=== PATIENT | female | born 1970 | race Caucasian/White ===

== ENCOUNTER → 2017-05-10 | Outpatient (CLI) | payer BC ==
[~2017-05-10] MED LIST: AMOXICILLIN 8751 TAB PO; CIPRO; EFFEXOR 75M75 MG/TAB PO; NORCO 325 MG-51 TAB PO; PERCOCET 325 MG1 TA2 PO; TRI-SPRINTEC 281 TAB PO; ZITHROMAX 250M250 MG PO
== END ==
LOC: COL.RAD 07:10
DX: R42 Dizziness and giddiness (principal)
CPT/HCPCS: A9585

== ENCOUNTER 2020-06-03 17:30 | Emergency (ER) | payer BC ==
[~2020-06-03] VITALS: Ht 172.7 cm; Wt 136.4 kg
[2020-06-03 17:38] VITALS: TEMP 98.1
[2020-06-03 17:45] LABS: HEMATOCRIT 39.1 % (37.0-47.0); HEMOGLOBIN 12.7 g/dl (12.5-16.0); MEAN CELL VOLUME 84 fl (80.0-100.0); MEAN CORPUSCULAR HEMOGLOBIN 27 pg (27.0-31.0); MEAN CORPUSCULAR HGB CONC 33 g/dl (33.0-37.0); PLATELET COUNT 136 K/mm3 (130-400); RED BLOOD COUNT 4.66 M/mm3 (4.10-5.30); REDCELL DISTRIBUTION WIDTH-CV 13.9 % (11.5-14.5)
[2020-06-03 17:47] LABS: PROTHROMBIN TIME 11.2 SECONDS (9.7-12.8)
[2020-06-03 17:50] LABS: PARTIAL THROMBOPLASTIN TIME 31.5 SECONDS (26.0-37.0)
[2020-06-03 17:54] LABS: ALANINE AMINOTRANSFERASE 20 U/L (4-34); ALBUMIN 4.2 gm/dL (3.5-5.0); ALKALINE PHOSPHATASE 100 U/L (50-136); ANION GAP 10 mmol/L (7-16); AST,SGOT 28 U/L (15-37); BILIRUBIN,TOTAL 0.4 mg/dL (0.0-1.0); BLOOD UREA NITROGEN 14 mg/dL (7-17); CALCIUM 8.9 mg/dL (8.4-10.2); CARBON DIOXIDE 25 mmol/L (22-30); CHLORIDE 100 mmol/L (98-107); CREATININE, serum 0.85 (0.52-1.25); GLUCOSE 166 mg/dL (74-106); POTASSIUM 3.3 mmol/L (3.4-5.0); SODIUM 135 mmol/L (137-145); TOTAL PROTEIN 7.9 gm/dL (6.4-8.2)
[2020-06-03 17:55] LABS: ALCOHOL(ethanol),MEDICAL < 10 mg/dL
[2020-06-03 17:59] LABS: BAND 1 % (0-10); EOSINOPHIL 5 % (0-4); LYMPHOCYTE 33 % (20.0-51.0); NEUTROPHILS 53 % (42.0-75.2); PLATELET ESTIMATE DECREASED (NORMAL)
[2020-06-03 18:14] LABS: TROPONIN-I < 0.012 ng/mL (0.000-0.035)
[2020-06-03 18:33] VITALS: BP 163/139; PULSE 95
[2020-06-03] MEDS ORDERED: REQUIP 1MG T1 MG/TAB PO (19:14)
[2020-06-03] MEDS ORDERED: MOBIC 7.5MG7.5 MG PO (19:14)
[2020-06-03] MEDS ORDERED: D3-5050000 IU PO (19:15)
== END 2020-06-03 18:50 | disposition short-term general hospital (02) ==
LOC: COL.ER 17:30
PROVIDERS: Emergency Medicine
DX: I61.9 Nontraumatic intracerebral hemorrhage, unspecified (principal); I61.6 Nontraumatic intracerebral hemorrhage, multiple localized; F32.9 Major depressive disorder, single episode, unspecified
CPT/HCPCS: J0330; J2704; J3010; J7030

== ENCOUNTER 2020-06-12 11:25 | Inpatient (IN) | payer BC ==
[~2020-06-12] VITALS: Ht 175.3 cm; Wt 134.5 kg
[~2020-06-12 11:25] MED LIST changes: +D3-5050000 IU PO; +MOBIC 7.5MG7.5 MG PO; +REQUIP 1MG T1 MG/TAB PO
--- NOTE | 2020-06-12 12:35 | NUR ---
PATIENT ARRIVED VIA AMBULANCE FROM [facility] AND WAS TRANSPORTED TO ROOM 337, ARRIVED AT 1235. PATIENT C/O HEADACHE/EYE PAIN TODAY, AND WAS GIVEN TYLENOL AND PRN PERCOCET. [id number] LIFT WITH 3X ASSIST WAS UTILIZED FOR TOILET TRANSFERS.
[2020-06-12] MEDS ORDERED: FERROUS GL325 MG/TAB PO (13:35)
[2020-06-12] MEDS ORDERED: LIPITOR 40MG TA40 MG PO (13:36)
[2020-06-12] MEDS ORDERED: NEURONTIN300 MG/CAP PO (13:37)
[2020-06-12] MEDS ORDERED: COZAAR 25MG25 MG/TAB PO (13:38)
[2020-06-12] MEDS ORDERED: HCTZ12.5TAB PO (13:38)
[2020-06-12] MEDS ORDERED: FLOMAX 0.40.4 MG/CAP PO (13:41)
[2020-06-12] MEDS ORDERED: PROAIR HFA0.09 MG/AC IH (13:42)
[2020-06-12] MEDS ORDERED: VITAMIN D 50,1.25 MG PO (13:55)
[2020-06-12 17:35] VITALS: BP 121/53; PULSE 79; TEMP 98.9
[2020-06-13 05:44] VITALS: BP 117/52; PULSE 84; TEMP 99.2
--- NOTE | 2020-06-13 05:53 | NUR ---
PT ADMIN. PERCOCET FOR LEG PAIN AND HEADACHE. PT FORGETFUL. SOMETIMES DIFFICULT TO UNDERSTAND WHAT SHE IS TALKING ABOUT. SIT TO STAND SOMEWHAT DIFFICULT TO USE WITH PT'S LEFT SIDE WEAKNESS.
[2020-06-13 13:04] LABS: COLLECTION METHOD CATHETER
--- NOTE | 2020-06-13 13:35 | NUR ---
Plan: To return home locally with Spouse Haile . Assessment: Patient reports that she resides locally. Patient reports that she is having a hard time finding his phone number. Patient reports that her PCP is Dr. Goode. and obtains medications from [facility], Patient reports havinga dpoa but does not remember where the ppw is located. Action: Educated patient on services, nothing follows.
[2020-06-13 13:59] LABS: MUCOUS Present /lpf; PH 7 (5-8); SQUAMOUS EPITHELIAL 0-2 /hpf; URINE APPEARANCE Hazy; URINE BACTERIA Moderate /hpf; URINE BILIRUBIN Negative (NEGATIVE); URINE BLOOD 1+ (NEGATIVE); URINE COLOR Yellow; URINE GLUCOSE Negative (NEGATIVE); URINE KETONE Negative (NEGATIVE); URINE LEUKOCYTE ESTERASE Trace (NEGATIVE); URINE NITRATE Positive (NEGATIVE); URINE PROTEIN(semi-quant) Negative (NEGATIVE); URINE UROBILINOGEN Negative (NEGATIVE)
--- NOTE | 2020-06-13 15:19 | NUR ---
Patient resting in bed with by her side. Call light in reach with bed alarm set. Patient was a max sit to stand lift with transfers this morning. Patient was continent of bowel this morning had a large soft BM light brown in color. Patient currently using a periwick for urinary incontince issues.
--- NOTE | 2020-06-13 15:21 | NUR ---
Straight cath was performed so that a sterile urine sample could be collected. Patient has been having urinary frequency and urine was hazy. Bladder scan was completed this morning with no risudal urine found. 16 setswana catheter was used for collection. Will continue to monitor.
[2020-06-13 16:51] VITALS: BP 115/59; PULSE 79; TEMP 98.4
--- NOTE | 2020-06-13 17:40 | NUR ---
Call placed to Dr. Jeffrey regarding urinalysis results. No new orders per Dr. Jeffrey.
--- NOTE | 2020-06-13 19:35 | NUR ---
PATIENT SLEEPING IN BED DURING CHANGE OF SHIFT REPORT FROM DAY SHIFT NURSE. BED ALARM ON.
--- NOTE | 2020-06-13 20:00 | NUR ---
FLACCID TO L SIDE OF BODY WITH REPORT L VISUAL FIELD DEFICIT, OBSERVED LEFT FACIAL DROOP. BED ALARM ON. BEDREST DURING NIGHT FOR SAFETY PRECAUTIONS, PATIENT REQUIRES X2-3 MAX ASSIST WITH TURNS.
--- NOTE | 2020-06-13 23:07 | NUR ---
PATIENT RESTING QUIETLY, WATCHING TV WITH NO REPORTED C/O AT THIS TIME. PERIWICK IN PLACE, NO URINE OUTPUT CURRENTLY. BED ALARM ON.
[2020-06-14 05:59] VITALS: BP 86/40; PULSE 73; TEMP 98.2
--- NOTE | 2020-06-14 06:50 | NUR ---
CHANGE OF SHIFT REPORT GIVEN TO DAY SHIFT NURSEJADEN. BED ALARM ON.
--- NOTE | 2020-06-14 07:08 | NUR ---
PATIENT SLEEPING IN BED AT BEDSIDE SHIFT REPORT. BED IN LOW, BED ALARM ON, AND SOFT TOUCH CALL LIGHT IN REACH. PERIWICK IN PLACE.
[2020-06-14 07:26] VITALS: BP 126/56; PULSE 76
--- NOTE | 2020-06-14 14:02 | NUR ---
PATIENT GIVEN PRN PERCOCET AT 1207 AND REASSESSED 45 MINUTES LATER, GIVEN A 2ND, AGAIN 45 MINUTES LATER REASSESSED AND GIVEN A 3RD FOR A CONTINUED PAIN LEVEL OF 10/10. ICE GIVEN TO PATIEN'TS LEFT HIP AND LIGHTS ARE DIMMED.
--- NOTE | 2020-06-14 17:46 | NUR ---
PATIENT C/O CONSTANT PAIN TODAY. PERCOCET X3 WEREN'T BENEFICIAL UNTIL COUPLED WITH ICE THERAPY AND MASSAGE/ POSITIVE REINFORCEMENT. PATIENT WAS CLEANSED WITH SOAP AND WATER IN VAGINAL AREA AND ZINC CREAM APPLIED. NEW PERIWICK WAS PLACED AND LINENS WERE CHANGED. CONTINUING TO ENCOURAGE PATIENT TO SCAN GAZE TO THE LEFT TO SEE ITEMS; PATIENT STATES "I DON'T LIKE THAT." PATIENT RESTING IN BED AND EATING DINNER UPRIGHT. BED IN LOW, BED ALARM ON, SOFT TOUCH CALL LIGHT WITHIN REACH.
[2020-06-14 18:22] VITALS: BP 103/50; BP 127/64; PULSE 78; TEMP 97.3
--- NOTE | 2020-06-14 19:05 | NUR ---
RECEIVED CHANGE OF SHIFT REPORT FROM DAY SHIFT NURSE. BED ALARM ON. PATIENT REQUEST PAIN MED WHEN NEXT AVAILABLE. AGREED TO ICE PACK FOR AREAS OF C/O TO BACK TO HEAD AND LEFT HIP. PATIENT ALSO MENTIONED SHE HAS MORE PAIN WHEN SHE IS STRESSED, REPORTING SHE WAS HAVING PROBLEMS LOCATING PROGRAM TO WATCH ON HER SMART PHONE. STAFF NURSE ASSISTED PATIENT IN FINDING PROGRAM.
--- NOTE | 2020-06-14 20:00 | NUR ---
CONTINUES WITH LEFT SIDED FLACCIDNESS TO LUE & LLE WITH SPASMS WITH MOVEMENT OF LLE. PATIENT REPORTS SOME PRE-EXISTING NUMB SENSATION TO LATERAL R THIGH THAT PATIENT WAS TO SEE NEUROLOGY FOR FURTHER WORKUP, REPORT HAS HAD WORKUP FOR LUPUS AND RHEUMATOID ARTHRITIS FOR C/O LEFT HIP/SHOULDER PAIN AND RIGHT LATERAL THIGH NUMBNESS. REPORTS ICE PACK TO BACK TO HEAD WAS HELPFUL WITH HEADACHE C/O, OBSERVED PATIENT RESTING WITH EYES CLOSED AFTER PLACEMENT OF ICE PACK. OBSERVED PATIENT WITH LEFT VISUAL FIELD DEFICIT, REPORTS NOT ABLE TO SEE WITH LEFT EYE UNTIL SWEEPS VISUAL FIELD FROM SIDE TO SIDE. OBSERVED LEFT SIDED FACIAL DROOPING, NO DROOLING OBSERVED TO CORNER OF LEFT SIDE OF MOUTH. SWALLOWS PILLS WHOLE, WHEN TAKEN ONE AT A TIME AND SITTING UP AT 90 DEGREES PER SWALLOWING PRECAUTIONS WITH PATIENT DRINKING WITH NO USE OF STRAWS. PATIENT REQUIRING MAX ASSIST X2 WITH REPOSITIONING FROM SIDE TO SIDE DUE TO LEFT SIDED DEFICIT TO LUE/LLE.
--- NOTE | 2020-06-14 22:42 | NUR ---
PATIENT C/O SOME SHORTNESS OF BREATH FROM FREQUENT COUGHING, THAT IS NONPRODUCTIVE. OXYGEN SAT CHECKED AT 87-88 INITIALLY THAT IMPROVES TO 91-93 WITH DEEP BREATHING. PATIENT AGREEABLE TO HAVE OXYGEN PER NASAL CANNULA PLACES TO NARES, RT INFORMED. WHEN ASKED PATIENT AGREED TO PRN RT TREATMENT AT THIS TIME. RT INFORMED OF PATIENT WANTING PRN TX. OXYGEN NOW IN PLACE PER NC AT 1LPM. BED ALARM ON.
[2020-06-15 04:31] VITALS: BP 113/60; PULSE 66; TEMP 97.6
--- NOTE | 2020-06-15 07:26 | NUR ---
CHANGE OF SHIFT REPORT GIVEN TO DAY SHIFT NURSEJADEN. BED ALARM ON.
--- NOTE | 2020-06-15 08:37 | NUR ---
PATIENT SLEEPING IN BED AT BEDSIDE SHIFT REPORT. BED IN LOW, CALL LIGHT WITHIN REACH, BED ALARM ON.
--- NOTE | 2020-06-15 09:27 | NUR ---
PATIENT C/O INTENSE PAIN IN LEFT HIP WITH A CONSISTENT 10/10 PAIN LEVEL. SINGLE PERCOCET WAS INEFFECTIVE. ON SECOND DOSE 45 MINUTES AFTER INITIAL ADMINISTRATION. WILL CONTINUE TO MONIOTR. ICE THERAPY, REPOSITIONING AND POSITIVE FEEDBACK HAVE BEEN INEFFECTIVE.
--- NOTE | 2020-06-15 15:19 | NUR ---
DR. WEBBER CALLED REGARDING UTI, OMNICEF PO STARTED 06/15. PAIN MANAGEMENT ALSO DISCUSSED. DR. WEBBER ORDERED THE PERCOCET TO BE CHANGED FROM Q6 TO Q4 HOURS.
[2020-06-15 15:45] VITALS: BP 101/45; PULSE 78; TEMP 99.1
--- NOTE | 2020-06-15 17:41 | NUR ---
PATIENT RESTING IN BED WITH ICE THERAPY ON LEFT HIP AND POSTERIOR NECK AND FOREHEAD. BED IN LOW, CALL LIGHT WITHIN REACH, ALARM ON, PUREWICK IN PLACE. PATIENT VAGINAL AND GROIN AREA CLEANSED WTIH SOAP AND WATER, PAT DRIED AND ZINC CREAM APPLIED BID TODAY. PATIENT CONTINUES TO C/O OF HEADACHES, LEFT HIP AND SHOULDER PAIN, PRN PERCOCET CHANGED TO Q4 HOURS FROM Q6 HOURS. PATIENT STARTED ON PO OMNICEF FOR UTI.
--- NOTE | 2020-06-15 19:00 | NUR ---
CHANGE OF SHIFT REPORT RECEIVED FROM DAY SHIFT NURSE.
--- NOTE | 2020-06-15 20:00 | NUR ---
LEFT SIDE OF BODY FLACCID TO LUE AND LLE D/T BRAIN BLEED ACUTE HX. OBSERVED MOVEMENT TO RUE/RLE. OBSERVED PATIENT REPORTING LEFT VISUAL FIELD DEFICIT, ENCOURAGING PATIENT TO SWEEP FOR VISUAL WHEN EATING/DRINKING/WATCHING TV, OBSERVED PATIENT NEEDING FREQUENT REMINDERS TO SWEEP FOR VISUAL FIELD. BED ALARM ON. CONTINUES TO SWALLOW PILLS WHOLE ONE AT A TIME WITH STAFF ASSISTING PATIENT. ABLE TO DRINK THIN LIQUIDS WITH NO COUGHING LONG PATIENT DOES NOT DRINK WITH STRAW.
[2020-06-16 06:11] VITALS: BP 114/47; PULSE 78; TEMP 97.8
[2020-06-16 07:24] LABS: BASO % 0.3 % (0.0-2.0); EOS # 0.5 (0.0-0.7); EOS % 3.9 % (0-4.0); GRAN % 69.5 % (42.2-75.2); HEMOGLOBIN 11.5 g/dl (12.5-16.0); LYMPH # 2.6 (1.2-3.4); LYMPH % 20.1 % (20.0-51.0); MEAN CELL VOLUME 86 fl (80.0-100.0); MEAN CORPUSCULAR HEMOGLOBIN 27 pg (27.0-31.0); MEAN CORPUSCULAR HGB CONC 31 g/dl (33.0-37.0); MEAN PLATELET VOLUME 12.6 fl (7.4-10.4); MONO # 0.7 (0.1-0.6); MONO % 5.1 % (1.7-9.3); PLATELET COUNT 105 K/mm3 (130-400); RED BLOOD COUNT 4.29 M/mm3 (4.10-5.30); REDCELL DISTRIBUTION WIDTH-CV 14.2 % (11.5-14.5)
[2020-06-16 07:25] LABS: HEMATOCRIT 36.7 % (37.0-47.0)
--- NOTE | 2020-06-16 07:27 | NUR ---
CHANGE OF SHIFT REPORT GIVEN TO DAY SHIFT NURSEERA. BED ALARM ON.
[2020-06-16 07:35] LABS: CALCIUM 8.8 mg/dL (8.4-10.2); CREATININE, serum 0.68 (0.52-1.25); MAGNESIUM 2.1 mg/dL (1.6-2.3); POTASSIUM 3.4 mmol/L (3.4-5.0)
--- NOTE | 2020-06-16 13:03 | NUR ---
Patient had a lot of pain this morning to her left hip and left shoulder rating it at 10/10. She was given prn Oxycodone, which was not effective so was given an additional one with more effect then rating it at 6/10. Patient is having burning with urination today and is currently on an antibiotic that was started on 06/15. Patient reports having some itching to her back and this nurse observed some red spots on her back. This will be reported to Dr. Nowak. Patient has been asking for some Diflucan reporting that it is more effective when she has been on an antibiotic. This will be communicated to Dr. Nowak.
--- NOTE | 2020-06-16 13:09 | NUR ---
Admission QIM scores were reviewed by the team. Code of 1 chosen for putting on/taking off footwear was determined by team discussion to be the most usual performance for this patient during the assessment period. Code of 1 chosen for rolling left to right was determined by team discussion to be the most usual performance for this patient during the assessment period.--Terri Griffiths, PD
--- NOTE | 2020-06-16 15:09 | NUR ---
ÁNGEL met with the patient and her , Haile, to introduce oneself and to follow up. The patient reports that she has been better. She states that therapy has been intense and that she has some really intense pain in her hip, which makes it hard for her to focus during therapy. The patient's jitterbug operator then arrive to her room. ÁNGEL to continue to follow.
--- NOTE | 2020-06-16 15:12 | NUR ---
Patient's psychometric examiner stopped by to visit patient and her .
[2020-06-16 17:39] VITALS: BP 121/44; PULSE 76; TEMP 98
--- NOTE | 2020-06-16 18:45 | NUR ---
CHANGE OF SHIFT REPORT RECEIVED FROM DAY SHIFT NURSE. BED ALARM ON. PATIENT REPORTS WANTING PAIN MEDS WHEN NEXT AVAILABLE.
--- NOTE | 2020-06-16 19:07 | NUR ---
Spoke with patient's today and rash on patient's back is not new. He stated that she uses lotion to help with this. Dr. Nowak saw patient, see new orders for one time dose of diflucan.
--- NOTE | 2020-06-16 20:00 | NUR ---
CONTINUES LEFT SIDED FLACCID TO BOTH UPPER AND LOWER LEFT SIDED EXTREMITIES. OBSERVED ALSO LEG SPASMS WITH PROM TO LLE BY STAFF OF PATIENT'S LLE. PATIENT CONTINUES TO C/O L HIP PAIN AT TIMES. REPORTS L VISUAL FIELD DEFICIT, STAFF ENCOURAGES PATIENT TO SWEEPING VISUAL FIELD, PATIENT DOES NOT ATTEMPT TO SWEEP VISUAL FIELD WHEN INTERACTING WITH ENVIROMENT. TODAY REPORTS FEELING COLD TO R SIDE OF BODY, ALSO OBSERVED PATIENT LEANING MORE TO RIGHT SIDE WELL REPOSITIONING RIGHT SIDE OF BODY CLOSER TO RIGHT SIDED BED RAILS THAT PATIENT VOICES SHE DOES NOT KNOW WHY SHE IS LAYING SO CLOSE TO RIGHT SIDE OF BED/BED RAILS. REPOSITIONING OF PATIENT TO CENTER OF BED REQUIRES X2 STAFF WITH MAX EFFORT. PATIENT CONTINUES TO USE PURE WICK FOR VOIDING, PATIENT INCONTINENT OF URINE AT THIS TIME. BED ALARM ON.
[2020-06-17 05:04] VITALS: BP 98/71; PULSE 67; TEMP 98.1
--- NOTE | 2020-06-17 07:07 | NUR ---
CHANGE OF SHIFT REPORT GIVEN TO DAY SHIFT NURSEERA. BED ALARM ON.
--- NOTE | 2020-06-17 09:31 | NUR ---
Patient was very tired this morning. She only ate 50% of her breakfast this AM. Patient was not wanting to do therapies this morning, but with multiple staff working with her she did start to participate with therapy. Patient frustrated that hadn't been by to see her this morning. Patient currently working with OT at this time. Reporting pain of 10/10 with head and left shoulder and given prn oxycodone x 2. Will continue to monitor.
--- NOTE | 2020-06-17 17:05 | NUR ---
ÁNGEL met with the patient and her , Haile, and presented and reviewed the IPR Team Conference Note. SW discussed the patient's progress so far and the team's recommendation to re-eval next Monday. The patient and her were agreeable to the plan. The patient and her are asking if their chiropractor, Dr. Harmon (ph#[phone]), can come to the hospital to treat the patient. SW to ask IPR Director or Payable Manager. SW to continue to follow.
[2020-06-17 17:08] VITALS: BP 115/58; PULSE 77; TEMP 98
--- NOTE | 2020-06-17 20:30 | NUR ---
Received report from OMER Waldron. Pt currently lying in bed. Pt did have some pain so pt was given medication at this time. Pt was also able to take all her night medications with water. Pt was able to tolerate her meds well in 90 degrees. Pt has no other concerns at this time. Pt has her call light within reach and her bed is in lowest position.
--- NOTE | 2020-06-18 02:00 | NUR ---
Pt has slept well all night. Pt stated that she was very weak and wanted to use the pure wick. Pt used the pure wick during the night. Pt has her call light within reach and her bed is in lowest position
[2020-06-18 05:30] VITALS: BP 124/46; PULSE 72; TEMP 98.7
--- NOTE | 2020-06-18 06:40 | NUR ---
Pt took all her morning medications well. Pt was able to sit up 90 degrees and had no problems taking her medications. Pt has her call light within reach and her bed is in lowest position.
--- NOTE | 2020-06-18 09:10 | NUR ---
Initial visit; Patient was receptive to Housekeeper/Laundry Assistant visit and her offering prayer and encouragement for Eden's recovery. Follow up visit would possibly be helpful.
--- NOTE | 2020-06-18 10:09 | NUR ---
PATIENT GIVEN PRN PO PERCOCET FOR PAIN IN HER LEFT SHOULDER THAT SHE IS RATING A 10/10 ON A 0-10 SCALE. PATIENT CURRENTLY IN THE ROOM WORKING WITH SPEECH THERPAY. PATIENT EDUCATED BY THERAPIST TO MAKE SURE THAT SHE IS KEEPING TRACK OF HER SHOULDER PLACEMENT WHEN SHE DEVELOPS SUDDEN PAIN IN A LIMB. PATIENT OFFERED PAIN CREAM TO APPLY TO SHOULDER, PATIENT REFUSED. WILL CONTINUE TO MONITOR.
--- NOTE | 2020-06-18 13:00 | NUR ---
PATIENT REPORTING ALOT OF PAIN IN HER LEFT SHOULDER AND HIP. ITS TOO SOON FOR ANOTHER PAIN PILL. PAIN CREME APPLIED TO LEFT SHOULDER AND HIP AND WIPED DOWN WITH WET CLOTH. PATIENT GIVEN A HALF DOSE OF TYLENOL WITH HER AFTERNOON GABAPENTIN. PATIENT HAD A PARTIAL URINE INCONTINENT EPSIODE. PERICARE PROVIDED. ZINC OINTMENT APPLIED TO GROIN AREA. PATIENT REPOSITIONED IN BED WITH SIT TO STAND LIFT AND PT.
--- NOTE | 2020-06-18 15:18 | NUR ---
PATIENT REPORTS PAIN IN HER LEFT LEG. PATIENT GIVEN PRN PAIN MEDICATION AT THIS TIME. WILL CONTINUE TO MONITOR.
--- NOTE | 2020-06-18 16:07 | NUR ---
PATIENT CALLED OUT REQUESTING A SECOND PAIN PILL. PATIENT IS LAYING IN BED MOVING HER RIGHT AND LEFT LEGS. PATIENT IS ABLE TO BEND HER LEFT KNEE, WIGGLE HER TOES, AND ROTATE HER LEG AT THE HIP. PATIENT REPORTS THAT IT IS VERY PAINFUL AND UNCOMFORTABLE TO DO SO. PAIN ENCOURAGED THAT SHE IS MAKING PROGRESS IN BEING ABLE TO MOVE HER LEFT LEG DESPITE THE PAIN IT CAUSES. PATIENT REPOSITIONED IN BED. SCD'S TO BLE. PURWICK IN PLACE. PRESENT AT THE BEDSIDE. CALL LIGHT IN REACH. NO OTHER NEEDS AT THIS TIME.
[2020-06-18 17:54] VITALS: BP 106/57; PULSE 76; TEMP 98.6
--- NOTE | 2020-06-19 05:04 | NUR ---
Pt currently sleeping in bed. Pt has not had any complaints of pain since she was given pain medciation. Pt has the call light within reach and her bed is in lowest position.
--- NOTE | 2020-06-19 06:57 | NUR ---
Reported off to OMER Tubbs. Pt is currently lying in bed. Pt request 2 warm blankets and was given the blankets this morning. Pt has been repositioned often but pt is close to the right side of the bed on her back at this time. Gladis care was provided during the shift and a dry pad was put underneath pt. Pt has her call light within reach. She was able to take her morning medications well sitting in a 90 degree angle.
--- NOTE | 2020-06-19 09:09 | NUR ---
PATIENT SLEEPING IN BED AT BEDSIDE SHIFT REPORT. BED IN LOW, CALL LIGHT WITHIN REACH, BED ALARM ON.
--- NOTE | 2020-06-19 18:05 | NUR ---
PATIENT RESTING IN BED, PUREWICK CHANGED AFTER PATIENT URINATED 600 MLS. CLEANSED AND ZINC CREAM APPLIED. DESENEX POWDER ORDERED FOR UNDER SKIN FOLDS/IRRITATION. PATIENT REPOSITIONE IN BED. BED IN LOW, CALL LIGTH WITHIN REACH, BED ALARM ON.
[2020-06-19 18:25] VITALS: BP 122/44; PULSE 80; TEMP 98
--- NOTE | 2020-06-19 19:50 | NUR ---
PT RESTING IN BED, MIGRATES TO RT SIDE OF BED. RT LEG SOMETIMES HANGS OVER. 2:1 REPOSITION AND STRAIGHTEN BEDDING UNDER PT. LONG HAIR MATTED. TAKE HS PILLS ONE AT A TIME WITH WATER- NO STRAW. NO CHOKING. SPEECH IS VERY FAST AND SL GARBLED- DIFFICULT TO UNDERSTAND AT TIMES. PERICARE GIVEN. CLEANED AND DRIED. DESENEX POWDER APPLIED TO PANNUS AND GROIN D/T YEAST REDNESS. ZINC OINTMENT TO OUTER LABIA. PUREWICK INSERTED AT LOWER SETTING OF 40. SCD'S ON BILAT- GOT LARGER SIZE FOR COMFORT. PT MORBIDLY OBESE. CALL LIGHT IN REACH. BED ALARM SET. DENIES OTHER NEEDS.
--- NOTE | 2020-06-19 21:00 | NUR ---
PT USING CALL LIGHT FREQUENTLY. REPOSITIONED. SCD'S OFF- REFUSES- TOO HOT. FOUND PILLOWS ON FLOOR. VERY RESTLESS. WANTS "ANYTHING" TO FALL ASLEEP. TOO SOON FOR PAIN MEDICATION- GAVE EARLIER.
--- NOTE | 2020-06-20 01:30 | NUR ---
PUREWICK CHANGED. LEAKING ON CHUX AND LINENS. LINENS CHANGED. PT HAS VERY THICK LOOSE NONPRODUCTIVE COUGH. ASKED FOR RT TX. REPOSITIONED PT BACK TO TOP OF BED. NOTIFIED RT OF PTS REQUEST. SEE MAR FOR PERCOCET AND TYLENOL GIVEN FOR LT SHOUDER AND HIP PAIN. CONTINUED SWALLOW PRECAUTIONS. PILLOWS UNDER LUE/LLE FOR SUPPORT. CALL LIGHT IN REACH. BED ALARM SET.
--- NOTE | 2020-06-20 01:45 | NUR ---
RT INFORMED THIS RN PT'S O2 SAT DOWN TO 84% RA. PLACED O2 2L NC AT THIS TIME AFTER SVN TX. COARSE CRACKLE THROUGHOUT BILAT NOTED
[2020-06-20 05:22] VITALS: BP 100/72; PULSE 72; TEMP 98.7
--- NOTE | 2020-06-20 05:22 | NUR ---
PT HAS SLEPT PERIODICALLY THIS SHIFT. VERY ANXIOUS AT TIMES. PUREWICK INTACT AND DRAINING WITH LOW SUCTION OF 60MMHG XLEAR YELLOW URINE.
--- NOTE | 2020-06-20 07:52 | NUR ---
Lying in bed with eyes closed. Opens eyes when name called out. Oriented to self and location, confused on date. Denies pain at this time. Patient speech fast. Stitches to anterior scalp intact, no redness/swelling/discharge noted, edges are well approximated. Patient pannus and labial area red. Has pure wick in place at this time. Assisted patient into upright position to eat breakfast. Takes medication one pill at a time without difficulty. Patient denies any additional needs at this time.
--- NOTE | 2020-06-20 10:53 | NUR ---
Rating pain in left shoulder 10/10, describes as sharp stabbing, worsens with movement. Administer Percocet as prescribed. Patient denies any additional needs at this time.
[2020-06-20 11:54] LABS: BASO # 0.1 (0.0-0.2); BASO % 0.5 % (0.0-2.0); EOS # 0.6 (0.0-0.7); EOS % 5.5 % (0-4.0); GRAN # 6.4 (1.4-6.5); GRAN % 61.3 % (42.2-75.2); HEMOGLOBIN 10.4 g/dl (12.5-16.0); LYMPH # 2.7 (1.2-3.4); LYMPH % 26.1 % (20.0-51.0); MEAN CELL VOLUME 85 fl (80.0-100.0); MEAN CORPUSCULAR HEMOGLOBIN 26 pg (27.0-31.0); MEAN CORPUSCULAR HGB CONC 31 g/dl (33.0-37.0); MEAN PLATELET VOLUME 12.9 fl (7.4-10.4); MONO # 0.6 (0.1-0.6); MONO % 5.9 % (1.7-9.3); PLATELET COUNT 96 K/mm3 (130-400); RED BLOOD COUNT 3.94 M/mm3 (4.10-5.30); REDCELL DISTRIBUTION WIDTH-CV 13.7 % (11.5-14.5)
[2020-06-20 11:58] LABS: HEMATOCRIT 33.4 % (37.0-47.0)
[2020-06-20 12:11] LABS: ALBUMIN 3.7 gm/dL (3.5-5.0); BILIRUBIN,TOTAL 0.5 mg/dL (0.0-1.0); CALCIUM 8.8 mg/dL (8.4-10.2); CREATININE, serum 0.74 (0.52-1.25); POTASSIUM 3.6 mmol/L (3.4-5.0); TOTAL PROTEIN 7.3 gm/dL (6.4-8.2)
--- NOTE | 2020-06-20 15:25 | NUR ---
Patient would like to get up to recliner chair at this time. Spouse in room with the patient and he says that he had to have a "come to [place] meeting" with the patient about getting out of bed and doing more to get better. Patient requires minimal assist with sitting up to edge of bed. Patient assisted up to recliner with the use of the [id number] lift with this nurse and CHRISTOPHER Tubbs, assisting with the transfer. Patient tolerates transfer well. Patient able to recline chair on own. Rates pain in left shoulder 10/10, describes as a sharp, stabbing pain that she relates to nerve pain. Would like pain medication if she is able to have some. Patient denies additional needs at this time.
--- NOTE | 2020-06-20 15:40 | NUR ---
Percocet administered as prescribed. Patient expresses that she is frustrated because her son is not able to come up to see her and she does not agree with the visitor policy. Reassure patient and explain why the visitor policy is the way it is. Patient says that she should be able to have her parents, son, and able to come up to see her and that she is not asking to have 20 visitors come see her. Explain that the restrictions are for her safety as well as the staff her at the hospital. Explain that if we allow her to do that then we would have to allow all the other patients the same rights and then the hospital would have lots of visitors. Patient expresses understanding and says that she is just frustrated. Reassurance provided. Patient denies additional needs at this time.
[2020-06-20 16:57] VITALS: BP 114/60; PULSE 81; TEMP 98.1
--- NOTE | 2020-06-20 17:38 | NUR ---
Patient requests to use lift to go into bathroom. Patient assisted into bathroom with lift by this nurse and CHRISTOPHER Tubbs. Patient voids, requests to return to bed. Patient to bed at this time. Pure wick reapplied. Patient assisted into comfortable position. Would like additional stool softener, will administer as prescribed at this time. Denies additional needs.
--- NOTE | 2020-06-20 18:55 | NUR ---
RADIOLOGU HERE FOR PORTABLE CHEST XRAY.
--- NOTE | 2020-06-20 20:32 | NUR ---
PT RESTING IN BED. ANXIOUS AFFECT. ASKING ABOUT CXR RESULTS. TALKS VERY FAST- WORDS ROLL TOGETHER. RT SIDED GAZE. PT RELATES CAN SEE CLEARLY FROM BOTH EYES. LT ARM FLACCID. LLE- INVOLUNTARY MUSCLE TENSION. PT ASKING FOR PAIN MEDICATION FOR LT SHOUDER AND RT HIP PAIN. SEE MAR FOR PAIN MED GIVEN. 2:1 REPOSTION TO TOP OF BED. REFUSES SCD'S. CALL LIGHT IN REACH. BED ALARM SET.
--- NOTE | 2020-06-20 23:55 | NUR ---
PT PLACED ON BEDPAN FOR BM. HAVING ABD CRAMPS. PASSING SOME BM BUT C/O ABD PAIN. WARM PACK PLACED ON ABD. GAVE PRUNE JUICE W/APPLE JUICE. OFFERED TO TRANSFER TO TOILET PER SIT TO STAND. PT DECLINED.
--- NOTE | 2020-06-21 00:10 | NUR ---
GAVE ZOFRAN FOR TRANSIENT NAUSEA.
--- NOTE | 2020-06-21 00:28 | NUR ---
HAD KAYLIG ARIC PUGH. 2:1 CLEAN UP AND REPOSITIONED. PT DECLINE BEDPAN ANY FURTHER. PT DIFFICULTY KEEPING TO TASK AT HAND. REASSUSRED PT WE WOULD NOT LEAVE UNTIL SHE HAD EVERYTHING SHE NEEDED. PT IN COMFORTABLE POSITION CALL LIGH IN REACH. BED ALARM SET. PT RELATES WANTS UP TO TOILET WITH SIT TO STAND BUT HURRY. PT ANXIOUS. GETTING EVERYTHING TOGETHER FOR SIT TO STAND LIFT. PT NOW WANTS BEDPAN. PLACED BED TAY. CALL LIGHT IN REACH.
--- NOTE | 2020-06-21 00:30 | NUR ---
NOTIFIED RT OF O2 SAT AND ADDED O2 2LNC. NOW O2SAT 97% 2LNC
--- NOTE | 2020-06-21 00:33 | NUR ---
REQUESTED PAIN MED FOR LT SHOULDER AND HIP PAIN. SEE MAR.
--- NOTE | 2020-06-21 01:30 | NUR ---
PT FEELS BETTER. HAD XLG SOFT FORM/SL LOOSE BROWN STOOL X 2 TONIGHT. PT READY FOR SOME SLEEP.
[2020-06-21 05:35] VITALS: BP 99/44; PULSE 86; TEMP 99
--- NOTE | 2020-06-21 05:41 | NUR ---
TEMP 99.7. ENC COUGH DEEP BREATH. OXYGEN STILL ON THROUGH THE NIGHT.
--- NOTE | 2020-06-21 08:57 | NUR ---
Lying in bed with eyes closed. Denies pain at this time. Offer shower to the patient and she says maybe some time. Pure wick in place to help with urine. Patient denies additional needs at this time.
--- NOTE | 2020-06-21 10:57 | NUR ---
Patient having pain and requests pain medication. Administer Percocet as prescribed. Patient would like to wait on shower until her spouse gets here as he will help her. Denies additional needs at this time.
--- NOTE | 2020-06-21 15:28 | NUR ---
Rating pain in left shoulder 10/10, requests pain medication. Percocet administered as prescribed. Denies additional needs at this time.
[2020-06-21 16:35] VITALS: BP 99/46; PULSE 81; TEMP 98.5
--- NOTE | 2020-06-21 19:00 | NUR ---
PT RESTING IN BED. HOB ELEVATED 30 DEGREES. OCCASIONAL THICK LOOSE NOPNPRODUCTIVE COUGH. PT NEEDY AND DEMANDING AT TIMES. LONG HAIR MATTED IN THE BACK. WORKED ON IT TODAY. ONLY DISCOMFORT IS MATTED HAIR TIGHT AGAINST SCALP. FRONT BRAIDED. PUT COCONUT OIL IN MATTED PORTION. PT DENIED NEED FOR PAIN MED FOR LT SHOULDER AND HIP. "NO, I JUST WANT TO GO TO SLEEP." LT SIDE FLACCID. LLE HAS INTERMITTENT INVOLUNTARY MUSCLE STRETCHING ANG TIGHTNESS. LT EXTREMITIES SUPPORTED WITH PILLOW. REFUSES SCD'S OR MOUTH CARE. PLACED O2 2L NC FOR JANNA. CALL LIGHT IN REACH. BED ALARM SET.
--- NOTE | 2020-06-21 19:27 | NUR ---
PT RESTING IN BED. SPILLS SPRITE. CHANGED TOP COVERS. NO OTHER NEEDS AT THIS TIME.
--- NOTE | 2020-06-22 04:33 | NUR ---
PUREWICK LEAKING. CHANGED CHUX. REPOSITIONED TO TOP OF BED. PT C/O HEADACHE IN OCCIPITAL AREA, LT SHOULDER AND LT HIP PAIN. SEE MAR FOR PAIN MED GIVEN. VSS. PT KEEPS TAKING NC OFF. ENC PT TO KEEP IT ON.
[2020-06-22 04:35] VITALS: BP 101/52; PULSE 70; TEMP 98.4
[2020-06-22 08:25] VITALS: BP 95/46
--- NOTE | 2020-06-22 10:21 | NUR ---
Patient resting in bed, call light in reach, bed alarm set. Attended all therapies this morning. Tolerated diet well this morning. Patient has some excoriation to her laurent area and it was cleansed with foam and soap and water. Patted dry and applied desenex powder to the area.
--- NOTE | 2020-06-22 13:46 | NUR ---
Patient resting in wheelchar playing domCelebration Creationes with her . Her call light is in reach and bed alarm set. Will continue to monitor.
[2020-06-22 17:44] VITALS: BP 120/47; PULSE 79; TEMP 98.9
--- NOTE | 2020-06-23 05:26 | NUR ---
Patient woke up several times during the night. She continues to need to be repositioned in the bed. She keeps moving to the right side of the bed. Minimal complaints of pain during the night. She had some cream applied to her right thigh before bed that started to burn, it go better after cleaning it off and placing an ice pack to the thigh. No other changes at this time. Call light within reach.
--- NOTE | 2020-06-23 05:45 | NUR ---
Changed viviana at this time. Gladis-care provided. Emptied 800ml from collection canister. No other changes at this time. Call light within reach.
[2020-06-23 05:50] VITALS: BP 129/63; PULSE 65; TEMP 98.2
--- NOTE | 2020-06-23 08:53 | NUR ---
Follow-up visit; Patient having breakfast and thanked Quality Assurance Coach for stopping by. Patient's affect seems to not change; possibly there is some depression that Quality Assurance Coach isn't addressing or patient is just having difficulty with her health issues.
--- NOTE | 2020-06-23 12:00 | NUR ---
Patient resting in bed, call light in reach and bed alarm set. Patient was dependent with transfering to wheelchair and bedside commode this morning. Patient was incontinent of urine this morning and staff changed her linens. Patient denies questions at this time.
--- NOTE | 2020-06-23 15:45 | NUR ---
SW met with the patient to follow up after the weekend. The patient states that she is feeling pretty hopeless right now. She states that she misses her son and parents. She states that she has been able to see her son, via Facetime, but that it is not the same. SW provided support. SW reviewed how team meeting would be tomorrow and SW would follow up with her afterwards. SW to continue to follow.
[2020-06-23 18:27] VITALS: BP 114/45; PULSE 76; TEMP 99.6
--- NOTE | 2020-06-23 21:27 | NUR ---
Pt is very needy tonight c/o buring on her Right leg. Have spent 20+ minutes massaging the leg and that does make it feel better, however, pt wants continuous massage. Will continue to monitor patient through the night. No further concerns.
--- NOTE | 2020-06-23 21:29 | NUR ---
Patient attended all therapies today. She tolerated diet well. Pain was managed with prn pain meds and were effective for the most part. Patient started getting a new prickling pain to her right thigh last night, but she did not have any issues with this pain during the day today. Patient's stopped by to visit her this afternoon. Patient had multiple incontinent episodes when using the purewick. She moves around in bed alot and this changes the position of the device. She is having good output, but is reporting some itching to the upper labia area. Zinc was applied, will continue to monitor.
[2020-06-24 05:38] VITALS: BP 117/58; PULSE 69; TEMP 98.3
--- NOTE | 2020-06-24 06:57 | NUR ---
PATIENT SLEEPING IN BED AT BEDSIDE SHIFT REPORT. BED IN LOW, BED ALARM ON, CALL LIGHT WITHIN REACH. WILL COMMUNICATE WITH ABOUT INCREASED TINGLING IN LEFT ANTERIOR THIGH.
--- NOTE | 2020-06-24 16:47 | NUR ---
ÁNGEL attempted to meet with the patient to present and review the IPR Team Conference Note. The patient was sleeping and did not wake. ÁNGEL then contacted the patient's , Haile, to review note. ÁNGEL discussed the team's plan to re-eval next Monday. Haile was agreeable to the plan. Haile reports that they plan on staying at his parents home when the patient discharges. He states that the first floor is all one level and wheelchair accessible. He states that he will need paperwork from us to help them get out of their lease. A patient/family meeting was scheduled for next Monday, 07/01, at 1345. ÁNGEL to notify IPR Director and will continue to follow.
--- NOTE | 2020-06-24 17:50 | NUR ---
PATIENT HAD SMALL BM TODAY AND C/O UPSET STOMACH AND NEEDING TO GO MORE. PATIENT GIVEN PRN PERCOCET TODAY, WASHED AND CLEANSED CLAYTON AREA, ZINC APPLIED TO EXCORIATION. C/O NEW PAIN IN RIGHT UPPER THIGH. MEDICATION ERROR FOUND BY PHARMACY TODAY WITH ERGOCALCIFEROL WHICH WAS GIVEN IN EXCESS 5 TIMES. PRN MIRALAX GIVEN FOR CONSTIPATION. PATIENT HAVING DIFFICULTY TRANSFERRING WITH SIT TO STAND OFF OF TOILET, SUGGEST NOT USING TOILET ONLY BEDSIDE COMMODE WILL PASS ON TO NEXT SHIFT.
[2020-06-24 18:08] VITALS: BP 122/65; PULSE 77; TEMP 98.2
--- NOTE | 2020-06-24 21:30 | NUR ---
PUREWICK PLACED AFTER CLAYTON CARE. GROIN EXCORIATION IMPROVED- ZINC OINTMENT APPLIED. O2 STARTED PER NC FOR HS JANNA. PT NEEDY AND HAS MANY SMALL COMPLAINTS. PT INDICATED SHE DID NOT RECEIVE HER 1899 REQUIP. CHECKED OMNICELL AND COMPUTER FOR DOCUMENTATION- INDICATION IT WAS GIVEN. GAVE NEUROTIN AND PAIN MED FOR INCREASED LEG SPASM AND PAIN. SEE MAR. CALL LIGHT IN PLACE. BED ALARB SET. AGREED TO SCD PLACEMENT LONG WE RETURNED IN A LITTLE BIT TO TAKE OFF D/T IT BEING TOO HOT.
--- NOTE | 2020-06-24 23:49 | NUR ---
PT HAS OCCASIONAL THICK HARSH LOOSE NONPRODUCTIVE COUGH. ENC HOB ELEVATED ALITTLE. ARGUES BUT AGREES. HUMIDITY ADDED TO O2 BY RT.
[2020-06-25 04:41] VITALS: BP 115/52; PULSE 64; TEMP 97.9
--- NOTE | 2020-06-25 10:22 | NUR ---
Patient was incontinent of urine this morning and it took two staff members to assist with changing bedding and cleaning up patient. Patient requires sit to stand with transfers, but is able to role to her left on her own with queing, needs one max assist with rolling to her right due to left side faccidity. Patient attending therapy at this time. Patient was instructed that she will not be able to use the purewick during the day, instead will need to call staff and [facility]. She voiced understanding. Patient was requesting to use her own mask, but this nurse was not able to locate it this morning. Will ask about it when I see him this afternoon.
--- NOTE | 2020-06-25 14:12 | NUR ---
The patient is to tentatively need a sit to stand lift for home. SW called different DME companies to inquire if they have sit to stand lifts in stock. [facility]: Only carries sarah lifts with sling and would not be able to order a sit to stand lift. [facility]: Does not carry and is unable to order lift. [employer] [facility]: Does not sell lift. [facility] [place]: Does not carry and unable to order lift. [facility]: Does not carry lift. [facility] in [place] ([place] location): They do carry sit to stand lift. They do not bill insurance. To Rent, a hydrolic lift is $150. A full electric lift is $225. [facility]: They do not have any in stock, but can order. Can take up to 7-10 days to receive. They can bill insurance, but it can take up to 15 days for insurance to let them know if they will cover lift or not.
[2020-06-25 16:25] VITALS: BP 118/70; PULSE 68; TEMP 98.4
--- NOTE | 2020-06-25 19:30 | NUR ---
Patient attended all therapies today. She was a max assist with sit to stand with ambulation to the toilet multiple times today. Patient tolerated diet well. She was visiting with her today when she was able to move her left leg up and down multiple times independently. Patient reported that she felt like she had an itch and just lifted it up to scratch it. Patient currently resting in bed, call light in reach and bed alarm set.
--- NOTE | 2020-06-25 20:00 | NUR ---
PT SLEEPY FROM PAIN MEDS GIVEN EARLIER BUT WAKES EASILY. SPOT CHECKED O2 SAT WHILE ASLLEP 92% RA. NO COMPLAINTS. READY FOR SLEEP
--- NOTE | 2020-06-26 04:11 | NUR ---
PUREWICK PLACED PER REQUEST. WARM BLANKET APPLIED. DENIES OTHER COMPLAINTS.
[2020-06-26 05:37] VITALS: BP 98/45; PULSE 60; TEMP 98
--- NOTE | 2020-06-26 09:41 | NUR ---
PATIENT IN BED AT BEDSIDE SHIFT REPORT. PERICARE PROVIDED AND BEDDING CHANGED. PATIENIT C/O PAIN AT THIS TIME BUT PRN PERCOCET HAD BEEN GIVEN AN HOUR AND A HALF PRIOR. PRN TYLENOL GIVEN LATER IN THE AM FOR HEADACHE.
[2020-06-26 15:58] VITALS: BP 101/49; PULSE 64; TEMP 98.1
--- NOTE | 2020-06-26 16:12 | NUR ---
SW met with the patient to follow up before the weekend. The patient states that she is still here. She states that she is ready to be home. SW provided support. SW to continue to follow.
--- NOTE | 2020-06-26 18:19 | NUR ---
PATIENT TOOK PRN PERCOCET AND TYLENOL TWICE TODAY. RECEIVED TWO STERIOID INJECTIONS INTO SHOULDER AND HIP JOINT BY DR. RAMSAY'S PA COLEMAN RICH FOR PAIN. PATIENT RECEIVED X-RAYS OF BOTH LOCATIONS TODAY WELL. PATIENT DOES HAVE SOME VOLUNTARY MOVEMENT IN LLE STILL NONE IN LUE. PATIENT IN BED AT BEDSIDE SHIFT REPORT, BED IN LOW, CALL LIGHT WITHIN REACH, BED ALARM ON
--- NOTE | 2020-06-26 19:39 | NUR ---
CHANGE OF SHIFT REPORT RECEIVED FROM DAY SHIFT NURSE. BED ALARM ON.
--- NOTE | 2020-06-26 20:00 | NUR ---
FLACCID LUE AND WEAKNESS TO LLE DUE TO ICH. OBSERVED L FACIAL DROOPING, PATIENT ABLE TO SWALLOW PILLS WITH NO PROBLEMS.
--- NOTE | 2020-06-26 22:30 | NUR ---
PATIENT REPORTS HAS PAIN TO L SHOULDER AFTER TURNING ONTO L SIDE, SEE eMAR FOR ADDITIONAL PAIN MEDS GIVEN. PER PATIENT REQUEST: APPLIED ICE PACK TO L SHOULDER AND SET UP HEATING PAD FOR PATIENT TO PLACE TO L HIP. PATIENT REPORTED SHE HAD RECEIVED STEROID INJECTIONS TO L SHOULDER AND L HIP BY ORTHO PROVIDER. PATIENT ALSO AGREED TO HAVE PURE WICK PUT IN PLACE TO PERIAREA. BED ALARM ON.
--- NOTE | 2020-06-27 00:06 | NUR ---
PATIENT SLEEPING, DOES NOT WAKEN WHEN ROOM ENTERED BY STAFF. OBSERVED BREATHING NONLABORED AND EVEN. BED ALARM ON.
[2020-06-27 06:23] VITALS: BP 119/57; PULSE 69; TEMP 98.2
--- NOTE | 2020-06-27 07:09 | NUR ---
CHANGE OF SHIFT REPORT GIVEN TO DAY SHIFT NURSEJADEN. BED ALARM ON.
--- NOTE | 2020-06-27 07:21 | NUR ---
PATIENT SLEEPING IN BED AT BEDSIDE SHIFT REPORT. BED IN LOW, CALL LIGHT WITHIN REACH, BED ALARM ON.
--- NOTE | 2020-06-27 18:20 | NUR ---
PATIENT HAD SEVERAL LARGE BM'S TODAY. UTILIZED SIT-STAND LIFT TO BEDSIDE COMMODE. PURWICK UTILIZED FOR URINATION IN BETWEEN. PRN PERCOCET GIVEN TWICE. GOWN CHANGED OUT THIS EVENING. PATIENT UP AND EATING DINNER IN BED AT BEDSIDE SHIFT REPORT. BED INLOW, CALL LIGHT WITHIN REACH, BED ALARM ON.
[2020-06-27 18:29] VITALS: BP 106/66; PULSE 67; TEMP 98.7
--- NOTE | 2020-06-27 19:09 | NUR ---
RECEIVED CHANGE OF SHIFT REPORT FROM DAY SHIFT NURSE. BED ALARM ON.
--- NOTE | 2020-06-27 20:02 | NUR ---
CONTINUED LUE FLACCIDNESS WITH NO DEVELOPMENTAL THERAPIST AND LLE WEAKNESS THAT PATIENT SAYS TODAY SHE WAS NOT ABLE TO MOVE LLE, COMPARED TO YESTERDAY WITH OBSERVED SOME LLE AROM INTERMITTANTLY PRIOR TO BEDTIME YESTERDAY. PATIENT REQUESTED/GIVEN PAIN MED FOR COMPLAINTS OF RESTLESS LEGS/DISCOMFORT AFTER ALREADY RECEIVING SCHEDULED REQUIP. STATED HAD SEVERAL BMs TODAY, DID NOT WANT STOOL SOFTENER. NO OTHER NEEDS REPORTED.
--- NOTE | 2020-06-27 20:09 | NUR ---
REFUSED ORAL CARE, WANTING TO SLEEP. BED ALARM ON, WEARING MOUTH GUARD IN PLACE OF WEARING CPAP ( PER PATIENT REPORT).
--- NOTE | 2020-06-27 20:15 | NUR ---
PATIENT CALLED OUT TO HAVE SCD REMOVED, STATING IT WAS MAKING HER FEEL HOT.
--- NOTE | 2020-06-28 00:01 | NUR ---
PATIENT REPOSITIONED TO CENTER OF BED, C/O L SHOULDER PAIN DURING TURNS FROM SIDE TO SIDE WHEN LAYING ONTO L SHOULDER, REQUESTED PAIN MEDS. SEE eMAR FOR PAIN MED GIVEN. REQUESTED TO HAVE PURE WICK PLACED TO PERIAREA AND LEAVE PURE WICK IN PLACE FOR NOW. NO OTHER NEEDS REPORTED. BED ALARM ON.
--- NOTE | 2020-06-28 01:59 | NUR ---
PATIENT SLEEPING, OBSERVED BREATHING NONLABORED AND EVEN. DOES NOT WAKE WHEN ROOM ENTERED BY STAFF. BED ALARM ON.
[2020-06-28 05:04] VITALS: BP 138/72; PULSE 60; TEMP 98.4
--- NOTE | 2020-06-28 07:28 | NUR ---
CHANGE OF SHIFT REPORT GIVEN TO DAY SHIFT NURSEMEL. BED ALARM ON.
--- NOTE | 2020-06-28 08:00 | NUR ---
Patient resting in bed at this time. Patient is alert and oriented, answers questions appropriately. Patient reports that pain is controlled at this time, does say that she would like to take a shower if possible today, and if not, she would like a bed bath/shampoo cap. Informed patient that we would be glad to help her clean up and to let staff know when she was ready, patient verbalized understanding. Denies further needs at this time, call light within reach.
--- NOTE | 2020-06-28 17:24 | NUR ---
Patient resting in bed eating dinner at this time. Patient remains alert and oriented but forgetful, per her baseline. Patient was provided a bedbath with a 1-2 assist today, with shampoo cap. Patient requested PRN pain medication for pain in her left shoulder rated 6/10, administered per order. Patient denies further needs at this time, call light within reach.
[2020-06-28 18:07] VITALS: BP 112/55; PULSE 67; TEMP 99.6
--- NOTE | 2020-06-28 18:41 | NUR ---
RECEIVED CHANGE OF SHIFT REPORT FROM DAY SHIFT NURSE. BED ALARM ON.
--- NOTE | 2020-06-28 19:07 | NUR ---
CONTINUES WITH LEFT SIDED FLACCIDNESS TO LUE/LLE EXTREMITIES. PATIENT ANXIOUS INITIALLY, WANTING TO GO HOME AND WANTING TO WORK ON LEARNING TO GET OUT OF BED INTO A WHEELCHAIR. REPORTS SHE IS STRESSED NOT BEING ABLE TO GO HOME. BED ALARM ON. REPORTS NO NEEDS AT THIS TIME. REPORTS SHE THINKS SHE MIGHT HAVE A BM SOON AND WANTS TO USE THE BSC INSTEAD OF BEDPAN.
--- NOTE | 2020-06-28 19:38 | NUR ---
REFUSED ORAL CARE AT THIS TIME, WANTING TO GO TO SLEEP. BED ALARM ON.
--- NOTE | 2020-06-28 22:10 | NUR ---
REQUESTED AND GIVEN WARM BLANKET. DENIES ANY OTHER NEEDS. BED ALARM ON.
--- NOTE | 2020-06-28 22:32 | NUR ---
PATIENT REPORTS VOIDED "I THOUGHT THE WICK WAS IN PLACE", INCONTINENT CARE/PERICARE GIVEN/CHANGED OUT LINENS. NO OTHER NEEDS REPORTED. BED ALARM ON.
--- NOTE | 2020-06-28 23:40 | NUR ---
REQUESTED AND GIVEN PAIN MED FOR C/O L SHOULDER PAIN. SEE eMAR FOR MEDS GIVEN. BED ALARM ON.
[2020-06-29 06:15] VITALS: BP 131/77; PULSE 55; TEMP 98.5
--- NOTE | 2020-06-29 07:19 | NUR ---
CHANGE OF SHIFT REPORT GIVEN TO DAY SHIFT NURSEJADEN. BED ALARM ON.
--- NOTE | 2020-06-29 10:09 | NUR ---
PATIENT SLEEPIN IN BED AT BEDSIDE SHIFT REPORT. PATIENT UP TO COMMODE FOR URINATION THIS AM. DENIED PAIN AT TIME OF ASSESS, SITTING UP IN WHEELCHAIR AWAITING THERAPY AT THIS TIME. CHAIR ALARM ON AND CALL LIGHT WITHIN REACH.
[2020-06-29 16:52] VITALS: BP 127/69; PULSE 67; TEMP 98.7
--- NOTE | 2020-06-29 19:25 | NUR ---
PATIENT HAD PRN PERCOCET ONCE IN THE AFTERNOON AND PRN TYLENOL IN THE EVENING. PATIENT IN POOR SPIRITS AT THE BEGINNING OF SHIFT WHICH IMPROVED THROUGHOUT THE DAY. PATIENT IN BED FOR THE NIGHT, UTILIZES PURWICK FOR URIINATION AT . BED IN LOW, CALL LIGHT WITHIN REACH, BED ALARM ON.
--- NOTE | 2020-06-29 20:00 | NUR ---
Assessment complete at this time. Patient complains of pain 5/10 in left hip/shoulder; PRN percocet administered for this. Patient's entire left side is flaccid; Patient is unable to move left side of face, arm or leg. She does have sensation to touch in these areas though. Left sided facial droop is also present. Passive ROM performed. Purewick external catheter is placed and is draining clear. yellow urine. No new concers, will continue to monitor.
[2020-06-30 04:24] VITALS: BP 113/48; PULSE 57; TEMP 98
[2020-06-30 07:39] VITALS: BP 130/68
--- NOTE | 2020-06-30 12:44 | NUR ---
Patient had a large bowel movement this afternoon and is now resting in bed, call light in reach and bed alarm is set. Haile stopped by to visit. Patient given prn pain meds to help with leg and shoulder pain.
[2020-06-30 18:00] VITALS: BP 112/55; PULSE 67; TEMP 98.4
--- NOTE | 2020-06-30 19:00 | NUR ---
CHANGE OF SHIFT REPORT RECEIVED FROM DAY SHIFT NURSE. BED ALARM ON.
--- NOTE | 2020-06-30 19:46 | NUR ---
Patient resting in bed, call light in reach and bed alarm set. Patient required use of the sit to stand multiple times today due to urinary frequency and bowel movements. Patient attended all therapies today using prn pain meds that were effective. Patient has been reporting some pain to her diaphram that started up yesterday and happens following her therapies. Patient given prn pain meds to help with this. Flora LAI will be talking with Dr. Nowak regarding this new pain. VSS and hear rate regular. Will continue to monitor.
--- NOTE | 2020-06-30 20:00 | NUR ---
L SIDED FLACCIDNESS CONTINUES TO BOTH LUE&LLE, DENIES NUMBNESS/TINGLING TO LUE/LLE EXTREMITIES. CONTINUES W/L VISUAL DEFICIT, ENCOURAGE PATIENT TO TURN HEAD SIDE TO SIDE, TO COMPENSATE FOR L VISUAL FIELD DEFICIT. BED ALARM ON.
[2020-07-01 05:43] VITALS: BP 122/65; PULSE 59; TEMP 97.6
--- NOTE | 2020-07-01 07:00 | NUR ---
CHANGE OF SHIFT REPORT GIVEN TO DAY SHIFT NURSEERA. BED ALARM ON.
--- NOTE | 2020-07-01 13:50 | NUR ---
A Family Conference was conducted with pt & pt's . Also present was PT, OT, ST, & Commercial Lending Relationship Manager. Commercial Lending Relationship Manager started by explaining the purpose of the meeting. The therapists explained how pt has been functioning & making good progress. Informed them of team wanting to ask insurance for another week, which they were fine with. is willing to come in for training as needed as he would like for her to be able to transfer better before being d/c'd.
[2020-07-01 18:13] VITALS: BP 128/68; PULSE 74; TEMP 99.4
--- NOTE | 2020-07-01 18:56 | NUR ---
CHANGE OF SHIFT REPORT RECEIVED FROM DAY SHIFT NURSE. BED ALARM ON.
--- NOTE | 2020-07-01 19:44 | NUR ---
Patient attended all therapies today and tolerated diet well this shift. Patient was able to go with out pain pills prior to therapy and only required one pain pill following therapy this afternoon. Patient was a sit to stand with transfers to bed side commode. Care plan meeting was today and patient will be having a reval next monday. Patient was remembering to sweep with her eyes to the left when trying to find things without queing a few times today. She also was working on word search puzzles today. Patient denied any questions this afternoon. Patient's stopped by this afternoon to visit. Patient currently resting in bed, call light in reach and bed alarm set.
--- NOTE | 2020-07-01 20:00 | NUR ---
LEFT SIDED FLACCIDNESS CONTINUES, OBSERVED NO AROM TO LUE OR LLE. DENIES NUMBNESS/TINGLING TO EXTREMITIES. DENIES CHEST PAIN/SHORTNESS OF BREATH. OBSERVED OCCASIONAL NONPRODUCTIVE COUGH. BED ALARM ON.
--- NOTE | 2020-07-02 01:48 | NUR ---
PATIENT SLEEPING, DOES NOT WAKE WHEN ROOM ENTERED BY STAFF. OBSERVED BREATHING NONLABORED AND EVEN. BED ALARM ON.
[2020-07-02 05:13] VITALS: BP 115/44; PULSE 62; TEMP 98.4
--- NOTE | 2020-07-02 07:12 | NUR ---
Change of shift report given to day shift nurseSuly. Bed alarm on, while in bed.
--- NOTE | 2020-07-02 09:43 | NUR ---
PATIENT HELPED TO THE RESTROOM AT BEDSIDE SHIFT REPORT. PATIENT DENIED PAIN THIS AM AND WAS ABLE TO TRANSFER X1 WITH PT THIS AM.
--- NOTE | 2020-07-02 10:59 | NUR ---
(late entry 07/01) Customer Counter Representative met with the patient to present the IPR Team Conference notes. She had no questions or concerns at this time.
[2020-07-02 17:45] VITALS: BP 115/54; PULSE 80; TEMP 98.4
--- NOTE | 2020-07-02 18:24 | NUR ---
PATIENT RECEIVED PRN PERCOCET TWICE TODAY. PATIENT MAKING SOME IMPROVEMENTS WITH THERAPY. PT ABLE TO DO PIVOT TRANSFER X1 TODAY. PATIENT, IN BED, BED ALARM ON, CALL LIGHT WITHIN REACH, BED IN LOW.
--- NOTE | 2020-07-02 20:30 | NUR ---
2:1 ASSIST SIT TO STAND LIFT TRANSFER TO BSC. VOIDED LG AMT SL NOEMÍ CLEAR URINE. TRANSFERRED BACK TO BED. PT RELATES NEEDS A PAIN PILL. PAIN TO LT LEG 03/25. JUST HAD PAIN PILL AT 1730. PT DIDNT REMEMBER. PT FORGETFUL AT TIMES. GAVE ADDITIONAL TYLENOL. SEE MAR. LT SIDE FLACCID. RT SIDED GAZE. CALL LIGHT IN REACH. BED ALARM SET.
--- NOTE | 2020-07-03 03:30 | NUR ---
PT NEEDS TO VOID. PLACED PUREWICK AFTER PROVIDING PERICARE. CLEANED UP ROOM. REPOSITIONED PT TO TOP OF BED. PT ABLE TO ASSIST BY REACHING GRAB BAR AND PULLING SELF UP. MIGRATES TO RT SIDE EDGE OF BED. CALL LIGHT IN REACH. BED ALARM SET.
[2020-07-03 06:07] VITALS: BP 113/57; PULSE 63; TEMP 98.2
--- NOTE | 2020-07-03 09:28 | NUR ---
PATIENT SLEEPING IN BED AT BEDSIDE SHIFT REPORT. PATIENT DENIED PAIN THIS AM, REQUESTED PAIN MEDICINE BE GIVEN AFTER THERAPY. HAS BEEN UP TO THE COMMODE TO [facility] AND BED LINENS CHANGED THIS AM. IN BED AT THIS TIME.
[2020-07-03 18:29] VITALS: BP 98/45; PULSE 74; TEMP 98
--- NOTE | 2020-07-03 18:55 | NUR ---
PATIENT RECEIVED PRN PERCOCET AND TYLENOL TODAY, WELL PRN MIRALAX. PATIENT ATTEMPTED SLIDE BOARD TRANSFER TODAY WITH NURSING STAFF, WILL ATTEMPT AGAIN AFTER THERAPY PERFORMS MORE FREQUENTLY. PATIENT IN BED AT BEDSIDE SHIFT REPORT.
[2020-07-04 05:10] VITALS: BP 129/70; PULSE 64; TEMP 97.9
--- NOTE | 2020-07-04 13:41 | NUR ---
Patient attended group therapy this morning. Tolerating diet well this morning. Patient was a max assist with sit to stand with transfers. Patient sleeping in bed at this time, call light in reach and bed alarm is set.
[2020-07-04 17:08] VITALS: BP 94/78; PULSE 74; TEMP 98.4
--- NOTE | 2020-07-04 19:09 | NUR ---
Patient slept following her lunch today, but did get up and was taken out via wheelchair to see her dog this afternoon for a few minutes. Patient returned with by her side. She was very tired once she returned and did have left shoulder pain and was given prn pain meds. Patient currently resting in bed, call light in reach and bed alarm is set. Patient denies any questions.
--- NOTE | 2020-07-04 19:30 | NUR ---
PT IN BED. VERY TALKATIVE AND CHEERFUL. SHARING EVENT OF HER DAY. PT HUNGRY. ATE CHEERIOS AND YOGURT. NO OTHER NEEDS AT THIS TIME. CALL LIGHT IN REACH. BED ALARM SET.
--- NOTE | 2020-07-04 20:40 | NUR ---
2:1 ASSIST WITH ARJO TRANSFER TO BSC. PT VOIDED LG AMT CLEAR YELLOW. PERICARE PROVIDED. BACK TO BED. GLUTEAL CLEFT REDNESS IMPROVING. SKIN INTACT. BILAT GROIN REDNESS IMPROVING. DESENEX POWDER APPLIED. O2 2L NC FOR THE NIGHT. PT ASKING FOR PAIN MED FOR LT SHOUDER. TOO SOON. ENSURED ALLIGNMENT LUE ON PILLOWS. CALL LIGHT IN REACH. BED ALARM SET.
--- NOTE | 2020-07-05 03:30 | NUR ---
PLACED MATHEW BANDA ON CHUX. CHANGED AND CLEANED PT UP. WARM BLANKET PROVIDED. BACK TO [facility].
[2020-07-05 05:40] VITALS: BP 106/53; PULSE 78; TEMP 97.9
[2020-07-05 08:30] VITALS: BP 107/52
--- NOTE | 2020-07-05 10:53 | NUR ---
Patient was a sit to stand with transferring to the toilet this morning and returning to bed. Patient is dependent with her hygiene. Denies questions this morning. Currently watching TV on her phone. Call light in reach and alarm is set. Will continue to monitor.
--- NOTE | 2020-07-05 15:40 | NUR ---
Cleansed under breasts due to some irriation. Observed slight red area that patient believes was caused from the gait belt during therapies. Applied powder. Patient's laurent area was cleansed, patted dry and applied Desenex. Only slight redness observed. Patient reporting left shoulder pain from that arm dropping down on its own. She wants to talk to therapy about using a sling for that arm when in the recliner or sitting up so that her pain isnt as bad. This will be communicated to the night nurse.
[2020-07-05 17:25] VITALS: BP 126/62; PULSE 75; TEMP 97.7
--- NOTE | 2020-07-05 19:22 | NUR ---
PT RESTING IN BED. COLORING IN HER NOTEBOOK. STARTED CRYING. GRIEVING HER LOSS OF INDEPENDENCE. PROVIDED EMOTIONAL SUPPORT. DISCUSSED STAGES OF GRIEF. ENC HER TO EXPRESS FEELINGS. PT ALSO C/O LT SHOULDER/ ARM PAIN FROM WEIGHT AND GRAVITY. SEE MAR FOR PAIN MED GIVEN. DECLINED ICE PACK OR KPAD. 2:1 TRANSFER TO [facility] WITH ARJO LIFT. PT VOIDED W/O DIFFICULTY. PERICARE PROVIDED. BACK TO BED. LT ARM SUPPORTED BY PILLOWS. ENC GOOD BODY ALLIGNMENT. ENC PT TO DO MUCH SHE CANFOR HERSELF. PT AGREED. HEELS FLOATED. CALL LIGHT IN REACH. BED ALARM SET.
--- NOTE | 2020-07-06 04:43 | NUR ---
PLACED PURWICK FOR VOID AT THIS TIME.
[2020-07-06 05:46] VITALS: PULSE 73; TEMP 98.5
[2020-07-06 05:56] VITALS: BP 104/48
--- NOTE | 2020-07-06 09:05 | NUR ---
PATIENT SLEEPING IN BED AT BEDISE SHIFT REPORT, ATTEMPTING TO USE PUREWICK AT THIS TIME. CHANGED BED LINENS AFTER PUREWICK USE AND CLEANED AND APPLIED ZINC TO SACRAL AREA AND GROIN. PATIENT REPORTS SLIGHT PAIN THIS AM BUT REFUSES PRN PAIN MEDICINE UNTIL AFTER THERAPY. PATIENT REPOSITIONED AND CALL LIGHT WITHIN REACH, BED ALARM ON.
--- NOTE | 2020-07-06 10:14 | NUR ---
Follow up visit; Patient thanked Spinning Frame Cleaner for stopping and keeping her in Spinning Frame Cleaner's prayers. Patient very talkative and is "Ready to get out of bed and go home." Eden is looking forward to her new home in [place].
[2020-07-06 16:10] VITALS: BP 103/45; PULSE 69; TEMP 98.5
--- NOTE | 2020-07-06 17:24 | NUR ---
PATIENT RECEIVED PRN PERCOCET TWICE TODAY WELL PRN TYLENOL THIS AM. PATIENT REQUESTED A SLING FOR LUE, THERAPY STATED THIS WAS NOT RECOMMENDED IT SHOULD BE RESTING OR PROPPED ON A PILLOW WHEN AT REST. PATIENT UTILIZED SLIDE BOARD BACK INTO BED TODAY X1 ASSIST, DOING WELL WITH THERAPIES.
--- NOTE | 2020-07-06 19:00 | NUR ---
RECEIVED CHANGE OF SHIFT REPORT FROM DAY SHIFT NURSE. BED ALARM ON.
[2020-07-07 05:11] VITALS: BP 144/72; PULSE 79; TEMP 98.6
--- NOTE | 2020-07-07 06:50 | NUR ---
Change of shift report given to day shift nurseSuly. Patient up on BSC, put back to bed per lift. See eMAR for meds given, also given pain meds for c/o of left hip/shoulder pain after being up on BSC w/lift transfer. Bed alarm on when back in bed.
--- NOTE | 2020-07-07 09:18 | NUR ---
PATIENT UP ON BEDSIDE COMMODE AT BEDSIDE SHIFT REPORT. PATIENT HAD LARGE FORMED BM BUT FEELS LIKE SHE NEEDS TO GO MORE. PATIENT RPORTED PAIN AT THIS TIME AND SWITCH OPERATORS SUPERVISOR NURSE GAVE HER A PRN PERCOCET. PATIENT IN BED AT RESTING BEFORE THERAPIES.
[2020-07-07 16:55] VITALS: BP 83/54; PULSE 97; TEMP 97.9
--- NOTE | 2020-07-07 18:05 | NUR ---
PATIENT REPORTING MORE PAIN TODAY, PRN PERCOCET GIVEN THREE TIMES, PRN TYLENOL ONCE. ICE TO AREAS OF PAIN. TWO LARGE BM'S. PATIENT DOING WELL WITH SLIDE BOARD TRANSFER, CONTINUING TO WORK ON PIVOT TRANSFERS. PATIENT USING BEDSIDE COMMODE AT THIS TIME.
--- NOTE | 2020-07-07 19:00 | NUR ---
RECEIVED CHANGE OF SHIFT REPORT FROM DAY SHIFT NURSE. BED ALARM ON WHEN IN BED.
--- NOTE | 2020-07-07 20:00 | NUR ---
CONTINUED FLACCIDNESS TO LUE AND WEAKNESS TO LLE WITH INTERMITTENT SPASMS WITH PROM TO LLE OBSERVED AT TIMES. DENIES NUMBNESS/TINGLING TO EXTREMITIES. DENIES CHEST PAIN/SHORTNESS OF BREATHE AT THIS TIME. PATIENT REPORTS SHE JUST WANTS TO GET SOME SLEEP. BED ALARM ON.
[2020-07-07 21:47] VITALS: BP 102/47
--- NOTE | 2020-07-08 02:52 | NUR ---
PATIENT SLEEPING AND WOKE WHEN ROOM ENTERED BY STAFF. REQUESTED BLANKET FOR EXTRA COVER, DENIED ANY NEEDS AT THIS TIME. BED ALARM ON.
[2020-07-08 05:08] VITALS: BP 119/50; PULSE 75; TEMP 98.3
--- NOTE | 2020-07-08 07:12 | NUR ---
CHANGE OF SHIFT REPORT GIVEN TO DAY SHIFT NURSEERA. BED ALARM ON.
--- NOTE | 2020-07-08 09:44 | NUR ---
Patient resting in wheelchair, call light in reach and alarm set. Patient reporting pain and swelling to her right knee and given prn ice to help along with pain meds. Patient also reporting left shoulder pain and difficulty with keeping her left arm in the wheelchair arm trough when she leans forward. This nurse applied an vangie wrap around the left hand and secured it to the wheelchair arm trough to try to keep the left arm from falling down and hurting her left shoulder. So far the vagnie wrap is helping. Will continue to monitor.
--- NOTE | 2020-07-08 09:58 | NUR ---
Called and placed order for patient's lunch.
--- NOTE | 2020-07-08 10:23 | NUR ---
Follow-up visit; Patient thanked Mushroom Packer for checking up on her and appears in better spirits. Patient is doing more activities and appears that it is helping her.
--- NOTE | 2020-07-08 11:27 | NUR ---
Patient resting in wheelchair following ST and is now coloring in her coloring book. This nurse adjusted left side wheelchair arm padding for better comfort. Her call light is in reach and alarm is set.
--- NOTE | 2020-07-08 15:16 | NUR ---
Residential Case Manager met with the patient and the patient's Haile to present the IPR Team Conference notes and the teams recommendations. The team is recommending to tentatively discharge on July,. The patient will be needing a 30 inch slide board and a wheelchair. The patient chose [facility]. The patient will be needing HHS. SW presented Medicare.gov's list of operations research group manager. The patient chose [facility]. SW faxed referral. The patient is moving to [place] on the day of discharge. The new address [address], [address].
--- NOTE | 2020-07-08 18:00 | NUR ---
Patient attended all therapies. Tolerated diet well this shift. stopped by to visit and talk with SW this afternoon. Care Plan meeting discussed possible discharge for Jul 17. Patient excited about the opportunity to go home. Patient and denied any more questions.
[2020-07-08 18:04] VITALS: BP 117/68; PULSE 78; TEMP 98.1
--- NOTE | 2020-07-08 19:30 | NUR ---
PT RESTING IN BED. C/O LT SHOULDER STILL HURTS. LEVEL 03/25. REPOSITIONED ARM. LT SHOULDER STILL TAPED FOR ADDED SUPPORT. SEE MAR FOR PAIN MED REPEATED. NO OTHER NEEDS AT T HIS TIME.
--- NOTE | 2020-07-09 01:50 | NUR ---
PLACED PUREWICK FOR VOID. VOIDED 800CC CLEAR YELLOW URINE.
[2020-07-09 06:47] VITALS: BP 128/58; PULSE 74; TEMP 98.4
--- NOTE | 2020-07-09 09:14 | NUR ---
Patient working with therapy at this time. Call light in reach and bed alarm set. Reports having pain to her right shoulder and right leg and given prn pain meds with good effect. Will continue to monitor.
--- NOTE | 2020-07-09 13:34 | NUR ---
Samantha from [facility] reports they can accept the patient for [facility].
--- NOTE | 2020-07-09 14:37 | NUR ---
Restaurant District Manager contacted [place] with [facility] regarding the patient's DME needs. The patient will be needing a 30 inch slideboard, 26 inch wheelchair, and a hospital bed. ÁNGEL faxed facesheet, HNP, PT/OT notes to [place]. ÁNGEL will have to fax DME order form next week.
[2020-07-09 17:33] VITALS: BP 114/52; PULSE 70; TEMP 98.1
--- NOTE | 2020-07-09 18:30 | NUR ---
Patient was able to do the slide board to the bedside commode a few times today with PT/OT and once with this nurse, but it was very difficult. Used the Sit to stand this evening, due to patient's pain being elevated to her right knee and left hip. Patient tolerated diet well this shift. She was seen by Dr. Palacios see his progress note. Patient currently resting in bed, call light in reach and bed alarm set. Reported off to night nurse.
--- NOTE | 2020-07-09 20:00 | NUR ---
PT C/O LT HIP PAIN. LEVEL5-6/10 SEE LYRIC FOR PAIN MED GIVEN. REPOSITIONED AWAY FROM RT SIDERAIL.
--- NOTE | 2020-07-10 05:37 | NUR ---
PT HAS SLEPT WELL THROUGH THE NIGHT. NO RESP DISTRESS. PUREWICK IN PLACE FOR VOID.
[2020-07-10 05:53] VITALS: BP 107/38; PULSE 80; TEMP 98.2
--- NOTE | 2020-07-10 06:56 | NUR ---
PATIENT SLEEPING IN BED AT BEDSIDE SHIFT REPORT. HAS PURWICK IN PLACE, BED IN LOW, CALL LIGHT WITHIN REACH AND ALARM ON.
[2020-07-10 17:46] VITALS: BP 119/72; PULSE 80; TEMP 98.3
--- NOTE | 2020-07-10 19:41 | NUR ---
PATIENT C/O MORE PAIN TODAY. DR. WEBBER IN TO ASSESS PATIENT AND ORDERED ULTRAM Q6 HOURS. PATIENT RECIEVED THAT THIS IRMA. PATIENT IN BED WITH CALL LIGHT IN REACH.
--- NOTE | 2020-07-10 20:00 | NUR ---
Report received, assumed care for shift superintendent. A&Ox3-drowsy. Assessment complete. VS have been stable. Denies pain/nausea/shortness of breath. Repositioned in bed with pillow support. Plan of care discussed for this shift to include pain control/calling for needs. Verbalizes understanding/denies questions/concerns. Call light in reach. Will monitor.
--- NOTE | 2020-07-11 01:00 | NUR ---
Called with c/o pain to left hip-rating pain 6/10 on pain scale-described as throbbing. Percocet one tab given per dr order. Repositioned lower ext and upper left ext with pillow support. Will monitor.
--- NOTE | 2020-07-11 01:45 | NUR ---
Up to commode at this time using sit to stand lift-assist x2. Voided without difficulty. C/O pain to left hip/back-still rating 6/10 on pain scale-described as constant throbbing. 2nd tab of percocet given per dr order. Will MOnitor.
--- NOTE | 2020-07-11 05:30 | NUR ---
Rested off and on this shift. Received percocet for pain control. Denies nausea/shortness of breath. Is irritated this AM stating "you never let me sleep, I cant wait to go home." Denies pain at this time. Call light in reach/bed alarm on will monitor.
[2020-07-11 06:04] VITALS: BP 123/59; PULSE 67; TEMP 97.9
--- NOTE | 2020-07-11 08:40 | NUR ---
Sitting up in wheel chair. Rating pain in left leg 7/10, describes as sharp. Administer Percocet as prescribed per patient request. Patient denies any other concerns or needs at this time.
[2020-07-11 16:08] VITALS: BP 118/46; PULSE 72; TEMP 98.2
--- NOTE | 2020-07-11 18:00 | NUR ---
Patient was up several times to the BSC today. She did not have a bowel movement today, she was trying. She did not do well with the slide board but did most the work to get up to a sittin position for the sit to stand lift. She continues to have pain but stated that the ultram and tylenol does not work and only wanted percocet. Explained she can only have percocet every 4 hours. No other changes at this time. Call light within reach.
--- NOTE | 2020-07-11 20:00 | NUR ---
Report received, assumed care for shift boss. Assessment complete. A&Ox3. VS stable. Denies nausea/shortness of breath. C/O pain to left lower ext/hip-rating 6/10 on pain scale-described as constant ache. Discussed pain meds ordered-refusing tylenol/tramadol-states will wait until percocet is due. States she feels exhausted and hopes she can sleep tonight. Plan of care discussed for this shift to include calling for needs/concerns, HS meds and pain control/repositioning. Verbalizes understanding/denies questions/concerns. Pillow support to left upper ext as well as left lower. Call light in reach/bed alarm on. Will monitor.
--- NOTE | 2020-07-11 20:45 | NUR ---
Percocet one tab given per dr order for pain to left hip/LLE-6/10-constant ache/throb. Will monitor.
--- NOTE | 2020-07-12 01:40 | NUR ---
Assisted to bedside commode-2 assist/sit to stand lift/gait belt. Voided without difficulty. C/O pain to LLE/Hip/Head-rating pain 6/10 described as throbbing. Percocet given per dr order. Will monitor.
[2020-07-12 04:42] VITALS: BP 149/76; PULSE 68; TEMP 98.5
--- NOTE | 2020-07-12 05:08 | NUR ---
Rested off and on this shift. Received percocet x2 for pain in left hip/LLE/head with good pain control. SIt to stand lift used with bedside commode for voiding/stool. Denied nausea/shortness of breath. Frustrated with AM medication time of 06-states she never takes her meds at this time and its way to early. Requesting times be changed to later in the AM. Denies current needs. Call light in reach. Will monitor.
--- NOTE | 2020-07-12 07:13 | NUR ---
PATIENT SLEEPING IN BED AT BEDSIDE SHIFT REPORT. PATIENT UP TO COMMODE THIS AM. PATIENT REPORTS BEING SORE AND FATIGUED BUT NOT IN PAIN AT THIS TIME.
[2020-07-12 16:31] VITALS: PULSE 74; TEMP 99.3
[2020-07-12 17:27] VITALS: BP 110/60
--- NOTE | 2020-07-12 17:52 | NUR ---
PATIENT REPORTS PAIN 9/10 MOST OF THE DAY, PRN PERCOCET GIVEN 3 TIMES, ICE APPLIED AND REPOSITIONING ENCOURAGED. PATIENT UTILIZED SIT TO STAND FOR COMMODE USE TODAY AND DID WELL WITH SLIDE BOARD TO WC, PATIENT WHEELED HERSELF AROUND IN THE HALLS TODAY FOR EXERCISE AND TO REDUCE ANXIETY. PATIENT RESTING IN BED AT THIS TIME, BED IN LOW, CALL LIGHT WITHIN REACH.
--- NOTE | 2020-07-12 18:59 | NUR ---
RECEIVED CHANGE OF SHIFT REPORT FROM DAY SHIFT NURSE. BED ALARM ON.
--- NOTE | 2020-07-12 20:19 | NUR ---
CONTINUES LEFT SIDED FLACCIDNESS TO LUE WITH WEAKNESS TO LLE. L FACIAL DROOP OBSERVED/CONTINUES BUT SWALLOWS PILLS WHOLE WITH NO PROBLEMS. REQUESTING PAIN MEDS WHEN NEXT AVAILABLE. BED ALARM ON.
--- NOTE | 2020-07-13 03:39 | NUR ---
PATIENT SLEEPING, OBSERVED BREATHING NONLABORED AND EVEN. DID NOT WAKE WHEN DOOR TO ROOM WAS OPENED BY STAFF. BED ALARM ON.
[2020-07-13 04:57] VITALS: BP 117/71; PULSE 73; TEMP 98
--- NOTE | 2020-07-13 06:54 | NUR ---
PATIENT SLEEPING IN BED AT BEDSIDE SHIFT REPORT. REPORTED PAIN TO NIGHT NURSE, RECEIVED PRN PERCOCET THIS AM. BED IN LOW, CALL LIGHT WITHIN REACH.
--- NOTE | 2020-07-13 07:15 | NUR ---
CHANGE OF SHIFT REPORT GIVEN TO DAY SHIFT NURSEJADEN. BED ALARM ON.
--- NOTE | 2020-07-13 08:29 | NUR ---
(late entry) Shirley from [facility] reports they do have the hospital bed in stock. They will still need documentation from OT/PT and nursing to ensure her insurance will approve. They have the 30 inch slide board in stock. The patient is also needing a 26 inch wheelchair. [facility] does not have that in stock and will not be able to get it. The patient will have to get it from another supplier.
--- NOTE | 2020-07-13 13:24 | NUR ---
Follow-up; Greeted Eden with encouragement this morning.
[2020-07-13 15:40] VITALS: BP 107/44; PULSE 71; TEMP 98.5
--- NOTE | 2020-07-13 16:31 | NUR ---
Gin Feeder contacted [facility], [facility], and [facility] and they all do not carry 26 inch wheelchair. SW met with patient to provide update and will follow up with DME providers in [place]. ÁNGEL advised patient that hospital bed and sliding board can be aquired through [facility]. ÁNGEL will continue to follow.
--- NOTE | 2020-07-13 19:06 | NUR ---
Patient reporting more pain today in legs and shoulder. PA ordered topical cream for pain Trixacine to extremties. Patient allowed night nurse to apply. Patient received PRN percocet x3 today and c/o high pain even after administration. Working on slide board transfers from commode to bed and back and, patient needs more practice but is able to do it. Patient assisted to commode at bedside shift report and back in bed with arm and leg propped on pillow, call light within reach.
--- NOTE | 2020-07-13 19:28 | NUR ---
RECEIVED CHANGE OF SHIFT REPORT FROM DAY SHIFT NURSE. BED ALARM ON.
--- NOTE | 2020-07-13 20:00 | NUR ---
CONTINUED LUE FLACCIDNESS WITH CONTINUE LLE WEAKNESS. PATIENT USES SLIDE BOARD TO GET ONTO BSC DURING CHANGE OF SHIFT REPORT WITH ASSIST OF 1-2 WITH GAIT BELT AND SLIDE BOARD. PATIENT TOLERATED TRANSFER WELL WITH C/O LLE LEG PAIN AND LUE/SHOULDER PAIN WITH MOVEMENT. BED ALARM ON WHEN BACK IN BED.
--- NOTE | 2020-07-13 20:30 | NUR ---
PATIENT REPORTS CAPZACIN CREAM DID NOT HELP WITH SHEREE LEG/L HIP PAIN NOR L SHOULDER PAIN, REPORTED THAT SKIN PAIN WORSENED. SEE eMAR FOR MEDS GIVEN.
[2020-07-14 05:58] VITALS: BP 118/62; PULSE 78; TEMP 97.8
--- NOTE | 2020-07-14 08:32 | NUR ---
CHANGE OF SHIFT REPORT GIVEN TO DAY SHIFT NURSEERA WITH PATIENT UP TO BSC DURING REPORT.
--- NOTE | 2020-07-14 13:37 | NUR ---
Patient currently working with therapy. Patient reporting pain to her left hip and shoulder and given prn pain meds, with not enough effect this morning. See change in Pain med in EMR. Patient using slide board, but reporting weakness to her right leg at times. Currently with , denies questions. Will continue to monitor.
[2020-07-14 18:03] VITALS: BP 121/62; PULSE 72; TEMP 98.1
--- NOTE | 2020-07-14 19:00 | NUR ---
RECEIVED CHANGE OF SHIFT REPORT FROM DAY SHIFT NURSE. BED ALARM ON.
[2020-07-15 06:30] VITALS: BP 126/61; PULSE 67; TEMP 98.2
--- NOTE | 2020-07-15 07:40 | NUR ---
CHANGE OF SHIFT REPORT GIVEN TO DAY SHIFT NURSEERA. BED ALARM ON.
--- NOTE | 2020-07-15 15:31 | NUR ---
Hydrologic Modeler collaborated with [facility] who advised patient would fit a 24 inch wheelchair if a 26 inch could not be found. ÁNGEL contacted [facility] and [facility], both do not have a 26 inch in stock at this time. ÁNGEL faxed order for 24 inch wheelchair, hospital bed, and slide board to [facility]. Connie at [facility] reports that notes look good for the hospital bed. ÁNGEL met with patient and patient's to provide update and copy of team conference notes. Patient advised she wants to make sure pain meds are prescribed at discharge. ÁNGEL collaborated with OMER Christopher who advised they should be. ÁNGEL obtained patient's new address ([address] [place] [address], [place] [address]) and provided it to [facility] and [facility]. ÁNGEL will continue to follow.
[2020-07-15 17:34] VITALS: BP 110/54; PULSE 74; TEMP 98.3
--- NOTE | 2020-07-15 20:17 | NUR ---
Patient attended all therapies and used slide board for all her transfers this shift. She was a CGA with this task one other staff member holding on to the BSC to make sure it didn't move when sliding on and off it. Gladis area continues to stay clean and dry and patient is able to wipe herself when toileting. Takes pills whole with water all at one time. Only requires staff to open items up on food trays, she is able to eat everything by herself. she opens some containers with her teeth at times. She has been having more pain to her left shoulder and hip due to all the slide board transfers, see new increased orders for 1 to 2 tabs of percocet every 4 hours and Flexeril. With the addition of these patient has been able to tolerate her therapies better. She did not have a bowel movement today. Reported off to night nurse.
--- NOTE | 2020-07-15 22:47 | NUR ---
Pt was was her bed, eyes closed but answering to questions while this nurse went to the pt room for bedsite handover. Pt seems tired and not interested to talk. Pt assessment completed and charted, alert, oriented, roomair. Meds provided as per DEC, tolerated well. Pt is settled on her bed, call light is on reach, bed alarm is on. No further needs at this time.
--- NOTE | 2020-07-16 04:11 | NUR ---
Pt requested for help to go to restroom when this nurse was helping another pt. A nurse aid was helping the pt to transfer from bed to the bedside commod by using the sliding scale. When this nurse was about to enter the room, pt sliding scale started tilting and the Nurse aid and this nurse has to lower the pt down on the floor. Once the pt was on the floor, this nurse asked if she has any pain anywhere due to the incident, pt stated no new pain anywhere on her body. The unit in-charge and another nurse came to the room and we help the pt go up to the bed. The nurse aid and this nurse Keenan her to the bedside commod and back to the bed. The unit in-charge and the hospitalist has been informed. The pt is settled back to the bed, no further needs at this time.
[2020-07-16 06:08] VITALS: BP 123/68; PULSE 75; TEMP 97.9
--- NOTE | 2020-07-16 07:59 | NUR ---
Pt slept on and off through out the night. No further needs at this time. Handover given to the day nurse.
--- NOTE | 2020-07-16 15:20 | NUR ---
Brood Hatchery Manager collaborated with Connie at [facility] who advised patient's slide board will be in tomorrow and all equipment would be delivered to patient's home at time of discharge. SW will call in the morning to coordinate time of delivery. SW met with patient and spoke with her on the phone about the above information. SW will continue to follow.
[2020-07-16 16:41] VITALS: BP 93/49; PULSE 78; TEMP 98.1
--- NOTE | 2020-07-16 18:36 | NUR ---
PATIENT'S DAY UNEVENTFUL. PATIENT PROVIDED WITH PAIN MEDICATION AND MUSCLE RELAXERS NEEDED THROUGHOUT THE SHIFT. PATIENT CURRENTLY RESTING IN BED. CALL LIGHT IN REACH. WILL REPORT OFF TO ONCOMING NURSE.
--- NOTE | 2020-07-17 01:41 | NUR ---
PT VERY DROWSY. DENIES PAIN AT THIS TIME. WANTS TO SLEEP. REFUSED HS PILLS. CALL LIGHT IN REACH. BED ALARM SET. SCD ON LLE.
--- NOTE | 2020-07-17 03:53 | NUR ---
ASSISTED 2:1 SIT TO STAND LIFT TO C. PT REFUSED SLIDE BOARD. PT REPORTS LT LEG HURTS BAD. VOIDS W/O DIFFICULTY. ABLE TO WIPE SELF. RETURNED TO BED. SEE MAR FOR PAIN MED GIVEN FOR LEVEL 9/10 LT LEG PAIN. CALL LIGHT IN REACH. BED ALARM SET.
[2020-07-17 06:09] VITALS: BP 137/62; PULSE 76; TEMP 97.9
[2020-07-17] MEDS ORDERED: FLEXERIL 1010 MG/TAB PO (08:56)
[2020-07-17] MEDS ORDERED: DESENEX TP (08:57)
[2020-07-17] MEDS ORDERED: ZINC OXIDE 28GM TOP (08:57)
[2020-07-17] MEDS ORDERED: TYLENOL 325MG325 MG PO (08:57)
[2020-07-17] MEDS ORDERED: NEURONTIN600 MG/TAB PO (08:57)
[2020-07-17] MEDS ORDERED: CAPSAICIN0.025% TP (08:58)
[2020-07-17] MEDS ORDERED: PERCOCET 325 MG1 TA2 PO (09:00)
--- NOTE | 2020-07-17 12:55 | NUR ---
Discharge teaching completed. Discussed discharge follow up appointments, discharge medications, home health and outpatient PT/OT. Patient and verbalized understanding and denied questions or concerns. Patient and confirmed all personal belongings gathered. Patient escorted to ED entrance where she entered a private vehicle.
--- NOTE | 2020-07-17 14:52 | NUR ---
Blending Tank Helper collaborated with Connie at [facility] to set time of delivery for patient's DME for 1400. SW provided time of delivery to patient's , who will provide transportation home and to RN, Tabatha. ÁNGEL contacted Beau at [facility] and faxed discharge orders. No additional needs at this time.
== END 2020-07-17 12:58 | disposition home health service (06) | DRG 56 ==
PROVIDERS: Physician Assistant; ADMIT Internal Medicine
PROC: 3E0U33Z Introduction of Anti-inflammatory into Joints, Percutaneous Approach (ICD-10-PCS; principal; 2020-07-02)
DX: I69.254 Hemiplegia and hemiparesis following other nontraumatic intracranial hemorrhage affecting left non-dominant side (principal); J96.01 Acute respiratory failure with hypoxia; N39.0 Urinary tract infection, site not specified; I69.292 Facial weakness following other nontraumatic intracranial hemorrhage; I95.9 Hypotension, unspecified; M06.9 Rheumatoid arthritis, unspecified; M77.8 Other enthesopathies, not elsewhere classified; M70.72 Other bursitis of hip, left hip; K59.00 Constipation, unspecified; G89.29 Other chronic pain; M25.552 Pain in left hip; I10 Essential (primary) hypertension; F32.9 Major depressive disorder, single episode, unspecified; F41.9 Anxiety disorder, unspecified; B96.20 Unspecified Escherichia coli [E. coli] as the cause of diseases classified elsewhere; Z90.710 Acquired absence of both cervix and uterus
CPT/HCPCS: 99222-AI; 99231-AI; 99232-AI; 99233-AI; 99239; A9284; J3301

== ENCOUNTER 2020-08-13 14:13 | Emergency (ER) | payer BC ==
[~2020-08-13] VITALS: Ht 175.3 cm; Wt 111.4 kg
[~2020-08-13 14:13] MED LIST changes: +CAPSAICIN0.025% TP; +COZAAR 25MG25 MG/TAB PO; +DESENEX TP; +FERROUS GL325 MG/TAB PO; +FLEXERIL 1010 MG/TAB PO; +FLOMAX 0.40.4 MG/CAP PO; +HCTZ12.5TAB PO; +LIPITOR 40MG TA40 MG PO; +NEURONTIN300 MG/CAP PO; +NEURONTIN600 MG/TAB PO; +PROAIR HFA0.09 MG/AC IH; +TYLENOL 325MG325 MG PO; +VITAMIN D 50,1.25 MG PO; +ZINC OXIDE 28GM TOP
[2020-08-13 14:25] VITALS: TEMP 97.2
[2020-08-13 15:29] LABS: BASO # 0.1 (0.0-0.2); BASO % 0.4 % (0.0-2.0); EOS # 0.4 (0.0-0.7); GRAN # 7.9 (1.4-6.5); HEMATOCRIT 39.2 % (37.0-47.0); HEMOGLOBIN 12.4 g/dl (12.5-16.0); LYMPH # 3.1 (1.2-3.4); MEAN CELL VOLUME 85 fl (80.0-100.0); MEAN CORPUSCULAR HEMOGLOBIN 27 pg (27.0-31.0); MEAN CORPUSCULAR HGB CONC 32 g/dl (33.0-37.0); MEAN PLATELET VOLUME 12.2 fl (7.4-10.4); MONO # 0.6 (0.1-0.6); MONO % 5.1 % (1.7-9.3); PLATELET COUNT 133 K/mm3 (130-400); RED BLOOD COUNT 4.64 M/mm3 (4.10-5.30); REDCELL DISTRIBUTION WIDTH-CV 14.7 % (11.5-14.5)
[2020-08-13 15:34] LABS: BILIRUBIN,TOTAL 0.4 mg/dL (0.0-1.0); CALCIUM 9.2 mg/dL (8.4-10.2); CREATININE, serum 0.79 (0.52-1.25); POTASSIUM 4.1 mmol/L (3.4-5.0); TOTAL PROTEIN 7.7 gm/dL (6.4-8.2)
[2020-08-13 16:02] LABS: INR 1.1 (0.8-3.0); PROTHROMBIN TIME 11.8 SECONDS (9.7-12.8)
[2020-08-13 16:05] LABS: PARTIAL THROMBOPLASTIN TIME 33.6 SECONDS (26.0-37.0)
[2020-08-13 17:43] VITALS: BP 119/79; PULSE 86
[2020-08-14] MEDS ORDERED: LOVENOX120 MG/0.8 SQ (20:15)
== END 2020-08-13 17:50 | disposition home or self-care (01) ==
LOC: COL.ER 14:13
PROVIDERS: Emergency Medicine
DX: I82.402 Acute embolism and thrombosis of unspecified deep veins of left lower extremity (principal); I61.9 Nontraumatic intracerebral hemorrhage, unspecified; I10 Essential (primary) hypertension; F32.9 Major depressive disorder, single episode, unspecified; Z86.73 Personal history of transient ischemic attack (TIA), and cerebral infarction without residual deficits

== ENCOUNTER 2020-08-14 17:29 | Emergency (ER) | payer BC ==
[~2020-08-14] VITALS: Ht 175.3 cm; Wt 115.9 kg
[~2020-08-14 17:29] MED LIST changes: -LOVENOX120 MG/0.8 SQ
[2020-08-14] MEDS ORDERED: LOVENOX120 MG/0.8 SQ (20:15)
[2020-08-14 20:40] VITALS: BP 137/81; PULSE 76; TEMP 97.6
== END 2020-08-14 20:47 | disposition home or self-care (01) ==
LOC: COL.ER 17:29
DX: I82.402 Acute embolism and thrombosis of unspecified deep veins of left lower extremity (principal); I10 Essential (primary) hypertension; Z86.73 Personal history of transient ischemic attack (TIA), and cerebral infarction without residual deficits
CPT/HCPCS: A9585

== ENCOUNTER → 2020-08-14 | Emergency (ER) | payer BC ==
[~2020-08-14] MED LIST changes: +LOVENOX120 MG/0.8 SQ
== END ==
LOC: COL.ER 14:10
DX: R69 Illness, unspecified (principal); Z79.51 Long term (current) use of inhaled steroids

== ENCOUNTER → 2021-03-02 | Outpatient (CLI) | payer OTHER ==
[~2021-03-02] MED LIST changes: +LOVENOX120 MG/0.8 SQ
== END ==
LOC: COL.VAS 11:43
DX: Z86.718 Personal history of other venous thrombosis and embolism (principal)

== ENCOUNTER 2023-09-28 13:30 | Outpatient (RCR) | payer MEDICARE, OTHER | END 2023-10-15 | disposition home or self-care (01) | LOC: WSPT | DX: I69.254 Hemiplegia and hemiparesis following other nontraumatic intracranial hemorrhage affecting left non-dominant side (principal); R29.898 Other symptoms and signs involving the musculoskeletal system ==

== ENCOUNTER 2024-06-04 09:56 | Emergency (ER) | payer MEDICARE ==
[~2024-06-04] VITALS: Ht 175.3 cm; Wt 136.4 kg
[2024-06-04 10:02] VITALS: TEMP 97.8
[2024-06-04] MEDS ORDERED: Pregabalin 50 MG CAP PO ONE (13:30)
--- NOTE | 2024-06-04 13:32 | NUR ---
diversified crops ii farmworker was consulted to provide community resources for patient as the will not be able to care for patient senior care. SW met with patient and confirmed patient's PCP is Dr. Torres at the [facility]. SW asked if they have home health already set up. Patient stated no she just fell this morning and her will not be able to care for her longshore equipment operator due to his recent medical diagnosis. SW discussed home health and the said she really needs help with showering. SW discussed senior care care and patient stated she will need longshore equipment operator care likely soon but she is unable to private pay and her Medicaid is currently inactive. Patient's stated she just found out about the Medicaid being inactive and believes they just need to sign some forms but they are uncertain right now. SW provided the list for private pay caregivers in their area in case they need it until they can get longshore equipment operator care established. ÁNGEL explained she would contact Dr. Torres's social media intern and request her assistance with helping her obtain the services that she needs. ÁNGEL asked if patient needs the list of nursing facilities and patient's stated no her friend was already working on this. Patient and had no further questions or needs at this time. ÁNGEL contacted Cassidy at Dr. Torres's office. ÁNGEL explained that patient currently needs a bath aide until she obtains her Medicaid again then she will need longshore equipment operator care as her will not be able to provide the support needed due to his medical diagnosis. Cassidy stated she would follow up with the family members. ÁNGEL explained patient's would be the best point of contact and provided his phone number. ÁNGEL made an APS report for services: INTAKE ID [id number]
[2024-06-04 13:43] VITALS: BP 123/77; PULSE 77
[2024-06-04] MEDS ORDERED: Acetaminophen 500 MG TAB PO ONE (13:45)
== END 2024-06-04 13:43 | disposition home or self-care (01) ==
LOC: COL.ER 09:56
DX: S09.90XA Unspecified injury of head, initial encounter (principal); W22.01XA Walked into wall, initial encounter